=== PATIENT | female | born 1955 | race African-American/Black ===

== ENCOUNTER 2016-08-17 10:50 | Emergency (ER) | payer OTHER ==
[2016-08-17 11:22] VITALS: BP 181/96; PULSE 94; TEMP 99.1; BMI 39.9
--- NOTE | 2016-08-17 11:39 | PDOC ---
History of Present Illness - General History Source: Patient Exam Limitations: No Limitations - History of Present Illness Initial Comments: 08/17/16 11:46 The patient is a 60 year old female, BIBA with a significant past medical history of asthma, diabetes, HTN, hypercholesterolemia, and migraines who presents to the emergency department with left jaw swelling and pain. She reports having an appointment to see her dentist today, but reports her blood pressure was elevated so she decided to come to the ER. Patient also has chief complaints of lower back pain. She reports having a previous recent UTI which was treated with antibiotics about 2 weeks ago. She denies recent fever, chills , and headache. She denies recent nausea, vomit, diarrhea and constipation. Allergies: As per Nursing Notes. Past surgical history:None reported. Social history: Former smoker. PCP: <Armin Andrews - Last Filed: 08/17/16 16:54> <Joss Godoy - Last Filed: 08/17/16 17:35> - General Chief Complaint: Lightheaded Stated Complaint: HTN,DIZZINESS Time Seen by Provider: 08/17/16 11:30 Past History <Armin Andrews - Last Filed: 08/17/16 16:54> - Past Medical History Asthma: Yes Diabetes: Yes HTN: Yes Hypercholesterolemia: Yes - Immunization History Immunization Up to Date: Yes - Psycho/Social/Smoking Cessation Hx Anxiety: No Suicidal Ideation: No Smoking History: Former smoker Have you smoked in the past 12 months: No If you are a former smoker, when did you quit?: 1999 Information on smoking cessation initiated: No Hx Alcohol Use: No Drug/Substance Use Hx: No Substance Use Type: None <Joss Godoy - Last Filed: 08/17/16 17:35> - Past Medical History Allergies/Adverse Reactions: Allergies Allergy/AdvReac Type Severity Reaction Status Date / Time Iodinated Contrast Media - Allergy Verified 08/17/16 11:16 Oral and topiramate [From Topamax] Allergy Verified 08/17/16 11:16 Home Medications: Ambulatory Orders Aspirin [ASA -] 81 mg PO DAILY 07/29/14 Atorvastatin Ca [Lipitor] 20 mg PO HS 07/29/14 Esomeprazole Mag Trihydrate [Nexium] 20 mg PO DAILY 07/29/14 Exenatide [Byetta] 10 mcg SQ BID 07/29/14 Glyburide 10 mg PO BID 07/29/14 Insulin Detemir [Levemir Flextouch] 80 unit SQ BID 07/29/14 Metformin HCl [Metformin HCl ER] 1,000 mg PO BID 07/29/14 Montelukast Na [Singulair -] 10 mg PO HS 07/29/14 Valsartan [Diovan] 320 mg PO DAILY 07/29/14 Albuterol Sulfate Inhaler - [Ventolin HFA Inhaler -] 2 inh PO Q4H PRN 08/11/14 Calcium Carbonate/Vitamin D3 [Calcium + Vitamin D Tablet] 1 each PO DAILY Cyanocobalamin [Vitamin B12 -] 0 mcg PO DAILY 12/28/15 Tramadol HCl 50 mg PO DAILY PRN 12/28/15 Naproxen [Naprosyn -] 500 mg PO BID PRN #14 tablet 12/30/15 Amox-Tr/K Cl [Augmentin - 875Mg Tablet] 1 tab PO BID #14 tablet 08/17/16 Clindamycin [Cleocin -] 600 mg PO Q6H #40 capsule 08/17/16 Methylprednisolone [Medrol Dose Heath] 4 mg PO ASDIR #21 tablet 08/17/16 Review of Systems - Review of Systems Able to Perform ROS?: Yes Comments:: 08/17/16 11:43 GENERAL/CONSTITUTIONAL: No fever or chills. No weakness. HEAD, EYES, EARS, NOSE AND THROAT: Yes: left sided mouth swelling and pain. No change in vision. No ear pain or discharge. No sore throat. CARDIOVASCULAR: No chest pain or shortness of breath. RESPIRATORY: No cough, wheezing, or hemoptysis. GASTROINTESTINAL: No nausea, vomiting, diarrhea or constipation. GENITOURINARY: No dysuria, frequency, or change in urination. MUSCULOSKELETAL: Present: lower back pain. No joint or muscle swelling or pain. No neck or back pain. SKIN: No rash NEUROLOGIC: No headache, loss of consciousness, or change in strength/ sensation. ENDOCRINE: No increased thirst. No abnormal weight change. HEMATOLOGIC/LYMPHATIC: No anemia, easy bleeding, or history of blood clots. ALLERGIC/IMMUNOLOGIC: No hives or skin allergy. <Armin Andrews - Last Filed: 08/17/16 16:54> *Physical Exam - Vital Signs Last Vital Signs Temp Pulse Resp BP Pulse Ox 99.1 F 94 H 20 181/96 97 08/17/16 11:16 08/17/16 11:16 08/17/16 11:16 08/17/16 11:16 08/17/16 11:16 - Physical Exam Comments: 08/17/16 11:47 GENERAL: Awake, alert, and fully oriented, in no acute distress. Morbidity obese. HEAD: No signs of trauma EYES: PERRLA, EOMI, sclera anicteric, conjunctiva clear ENT: Auricles normal inspection, hearing grossly normal, nares patent, oropharynx clear without exudates. Moist mucosa NECK: Huge football shape large intraoral and anterior neck abscess. Real tender to the neck. Cant really open mouth, but abscess appears to be draining into mouth, just posterior to the eye tooth. LUNGS: Breath sounds equal, clear to auscultation bilaterally. No wheezes, and no crackles HEART: Regular rate and rhythm, normal S1 and S2, no murmurs, rubs or gallops ABDOMEN: Large Soft, nontender, normoactive bowel sounds. No guarding, no rebound. No masses EXTREMITIES: Normal range of motion, no edema. No clubbing or cyanosis. No cords, erythema, or tenderness NEUROLOGICAL: Cranial nerves II through XII grossly intact. Normal speech, normal gait SKIN: Warm, Dry, normal turgor, no rashes or lesions noted. <Armin Andrews - Last Filed: 08/17/16 16:54> - Vital Signs Last Vital Signs Temp Pulse Resp BP Pulse Ox 99.1 F 94 H 20 181/96 97 08/17/16 11:16 08/17/16 11:16 08/17/16 11:16 08/17/16 11:16 08/17/16 11:16 <Joss Godoy - Last Filed: 08/17/16 17:35> ED Treatment Course - LABORATORY CBC & Chemistry Diagram: 08/17/16 11:49 08/17/16 12:02 - RADIOLOGY Radiograph Interpretation: 08/17/16 13:30 CHEST X-RAY impressions reported by Manpreet Nelson: No acute pathology. No significant change since 12/30/2015. 08/17/16 16:[address] WITH CONTR impressions reported by : Soft tissue swelling and subcutaneous edema along lateral margin of the left mandibular body, at the region of interest without evidence of an organized/ drainable abscess. No gross focal bone destruction is identified. <Armin Andrews - Last Filed: 08/17/16 16:54> - LABORATORY CBC & Chemistry Diagram: 08/17/16 11:49 08/17/16 12:02 <Joss Godoy - Last Filed: 08/17/16 17:35> Medical Decision Making - Medical Decision Making 08/17/16 16:49 I had a long discussion with the patient, she is refusing to be admitted. 08/17/16 16:54 Patient has hydrocodone and tramadol at home, and will discharge her home on Augmentin. <Armin Andrews - Last Filed: 08/17/16 16:54> *DC/Admit/Observation/Transfer - Attestations Scribe Attestion: 08/17/16 11:47 Documentation prepared by Armin Andrews, acting as medical practice manager for Joss Godoy DO. <Armin Andrews - Last Filed: 08/17/16 16:54> - Discharge Dispostion Admit: No - Attestations Physician Attestion: 08/17/16 11:37 <Joss Godoy - Last Filed: 08/17/16 17:35> Diagnosis at time of Disposition: Diffuse cellulitis of face, Acute cervical adenitis - Discharge Dispostion Disposition: HOME Condition at time of disposition: Improved - Prescriptions Prescriptions: Amox-Tr/K Cl [Augmentin - 875Mg Tablet] 1 tab PO BID #14 tablet Clindamycin [Cleocin -] 600 mg PO Q6H #40 capsule Methylprednisolone [Medrol Dose Heath] 4 mg PO ASDIR #21 tablet - Referrals Referrals: Dipak Nolen MD [Primary Care Provider] - - Patient Instructions Printed Discharge Instructions: DI for Cellulitis -- Adult Additional Instructions: Bozena- I should really be admitting you to the hospital...... Cleocin is four times a day...... get at least two doses into you tonight before bed. Augmentin is three times a day, get at lease one dose into you tonight before bed. Medrol is a steroid. Take Five tomorrow, 4, 3, 2, 1 Each subsequent day.... total of five days. Warm compresses or metal miner the shower and let the water hit the side of your face and neck as much as possible. See your dentist tomorrow or the next day. RETURN TO US RIGHT AWAY if you GET WORSE IN ANY WAY! - Post Discharge Activity Work/School Note: Back to Work
[2016-08-17] MEDS ORDERED: SODIUM CHLORIDE 1,000 ML IV STA (11:49)
[2016-08-17] MEDS ORDERED: FAMOTIDINE 20 MG/50 ML IVPB 50 ML IVPB ONE ×6 (11:49→15:21)
[2016-08-17] MEDS ORDERED: CLINDAMYCIN 900 MG PREMIX IVPB 50 ML IVPB ONE ×2 (11:49→12:07)
[2016-08-17] MEDS ORDERED: methylPREDNISolone NA SUCC 125 MG/2 ML VIAL IVPUSH ONE ×2 (11:49→15:09)
[2016-08-17] MEDS ORDERED: AMPICILLIN NA/SULBACTAM NA 3 GM in SODIUM CHLORIDE 100 ML IVPB ONE (11:49)
[2016-08-17] MEDS ORDERED: HYDROmorphone HCL CARPU-JECT 1 MG/1 ML DISP.SYRIN IVPUSH ONE (12:01)
[2016-08-17] MEDS ORDERED: ONDANSETRON 4 MG/2 ML VIAL IVPB ONE (12:01)
[2016-08-17] MEDS ORDERED: methylPREDNISolone NA SUCC 125 MG/2 ML VIAL ONE ×2 (12:10→15:20)
[2016-08-17 12:21] LABS: BASOPHIL 0.7 % (0-2.0); EOSINOPHIL 0.5 % (0-4.5); MCH 28.5 pg (25.7-33.7); MCHC 32.1 g/dl (32.0-36.0); MEAN PLT VOLUME 9.9 fl (7.5-11.1); NEUTROPHILS 68.3 % (42.8-82.8); PLATELET COUNT 291 K/MM3 (134-434); RDW 14.7 % (11.6-15.6)
[2016-08-17] MEDS ORDERED: HYDROmorphone HCL CARPU-JECT 1 MG/1 ML DISP.SYRIN ONE (12:23)
[2016-08-17 12:36] LABS: INR 1.14 (0.82-1.09); PROTHROMBIN TIME (PATIENT) 12.6 SEC (9.98-11.88)
[2016-08-17 12:39] LABS: ALBUMIN 3.6 g/dl (3.4-5.0); ANION GAP 9 (8-16); CO2 27 mmol/L (21-32); CREATININE 0.7 mg/dL (0.55-1.02); GLUCOSE,RANDOM 175 mg/dL (74-106); SGOT/AST 11 U/L (15-37); SGPT/ALT 28 U/L (12-78)
[2016-08-17 12:43] LABS: ALK PHOS 86 U/L (45-117); BILIRUBIN,TOTAL 0.5 mg/dL (0.2-1.0); TOT PROT 7.2 g/dl (6.4-8.2); TROPONIN I < 0.02 ng/ml (0.00-0.05)
[2016-08-17] MEDS ORDERED: ONDANSETRON 4 MG/2 ML VIAL ONE (13:29)
--- NOTE | 2016-08-17 22:56 | EKG ---
Test Reason : Blood Pressure : / mmHG Vent. Rate : 094 BPM Atrial Rate : 094 BPM P-R Int : 178 ms QRS Dur : 074 ms QT Int : 346 ms P-R-T Axes : 056 -28 030 degrees QTc Int : 432 ms NORMAL SINUS RHYTHM LOW VOLTAGE QRS INFERIOR INFARCT (CITED ON OR BEFORE 21-AUG-2014) CANNOT RULE OUT ANTERIOR INFARCT (CITED ON OR BEFORE 21-AUG-2014) ABNORMAL ECG WHEN COMPARED WITH ECG OF 28-DEC-2015 09:39, NO SIGNIFICANT CHANGE WAS FOUND Confirmed by IVELISSE ANDRES MD ([id number]) on 08/17/2016 10:56:18 PM Referred By: Confirmed By:IVELISSE ANDRES MD
== END 2016-08-17 18:05 | disposition home or self-care (01) ==
LOC: JER 10:50
PROC: 3E03329 Introduction of Other Anti-infective into Peripheral Vein, Percutaneous Approach (ICD-10-PCS; principal; 2016-08-17)
PROC: 3E0337Z Introduction of Electrolytic and Water Balance Substance into Peripheral Vein, Percutaneous Approach (ICD-10-PCS; 2016-08-17)
PROC: 3E033NZ Introduction of Analgesics, Hypnotics, Sedatives into Peripheral Vein, Percutaneous Approach (ICD-10-PCS; 2016-08-17)
PROC: 3E033GC Introduction of Other Therapeutic Substance into Peripheral Vein, Percutaneous Approach (ICD-10-PCS; 2016-08-17)
DX: L03.211 Cellulitis of face (principal); L04.0 Acute lymphadenitis of face, head and neck; J45.901 Unspecified asthma with (acute) exacerbation; E11.9 Type 2 diabetes mellitus without complications; I10 Essential (primary) hypertension; E78.00 Pure hypercholesterolemia, unspecified; Z87.891 Personal history of nicotine dependence; Z79.82 Long term (current) use of aspirin; Z79.84 Long term (current) use of oral hypoglycemic drugs
CPT/HCPCS: 36415; 70491-TC; 71010-TC; 80053; 82550; 84484; 85025; 85610; 87040; 93005; 93010; 99282-25

== ENCOUNTER 2016-08-26 18:38 | Emergency (ER) | payer OTHER ==
[2016-08-26 18:54] VITALS: BMI 38.2
[2016-08-26] MEDS ORDERED: FAMOTIDINE 20 MG/50 ML IVPB 50 ML IVPB ONE ×2 (19:43→19:50)
[2016-08-26] MEDS ORDERED: predniSONE 20 MG TABLET (UD) PO ONE (19:43)
[2016-08-26] MEDS ORDERED: ALBUTEROL SO4 0.083% IH SOL 2.5 MG/3 ML VIAL.NEB. NEB ONE ×2 (19:43→19:50)
[2016-08-26] MEDS ORDERED: predniSONE 20 MG TABLET (UD) ONE (19:50)
--- NOTE | 2016-08-26 20:48 | PDOC ---
[id number]: No Limitations - History of Present Illness Initial Comments: 08/26/16 21:05 The patient is a 60 year old female, with a significant past medical history of asthma, HTN, hyperlipidemia, diabetes, fibromyalgia and migraines, who presents to the emergency department with a rash of her face, chest, back and upper extremities since approximately 11AM this morning. The patient describes the rash as increasingly erythematous and edematous associated with itching and burning. The patient was most recently seen in this ED on 08/17/2016 for facial cellulitis and was discharged home on Augmentin and Cleocin, which she states she completed. The patient states that the facial cellulitis has since resolved but notes that the facial part of the rash she is presenting with today is in the same area as the facial cellulitis was. The patient additionally reports vaginal burning and itching, which she believes is secondary to the antibiotics she took for the facial cellulitis. The patient denies fever, chills, shortness of breath or chest pain. The patient denies using any new soaps or shampoos. The patient does not have a known allergy to Augmentin or Cleocin. Allergies: Topiramate, Iodinated Contrast Media Past Surgical History: None reported. Social History: Former smoker (quit in 1999). Denies alcohol or drug use. PCP: Dr. Nolen <Kiarra Chase - Last Filed: 08/26/16 21:06> - General History Source: Patient Exam Limitations: No Limitations <Cedric May - Last Filed: 09/01/16 13:30> - General Chief Complaint: Allergic Reaction Stated Complaint: ALLERGIC REACTION Time Seen by Provider: 08/26/16 19:09 Past History <Kiarra Chase - Last Filed: 08/26/16 21:06> - Past Medical History Asthma: Yes Diabetes: Yes HTN: Yes Hypercholesterolemia: Yes - Immunization History Immunization Up to Date: Yes - Psycho/Social/Smoking Cessation Hx Anxiety: No Suicidal Ideation: No Smoking History: Former smoker Have you smoked in the past 12 months: No If you are a former smoker, when did you quit?: 1999 Information on smoking cessation initiated: No Hx Alcohol Use: No Drug/Substance Use Hx: No Substance Use Type: None <Cedric May - Last Filed: 09/01/16 13:30> - Past Medical History Allergies/Adverse Reactions: Allergies Allergy/AdvReac Type Severity Reaction Status Date / Time Iodinated Contrast Media - Allergy Verified 08/26/16 18:50 Oral and topiramate [From Topamax] Allergy Verified 08/26/16 18:50 Home Medications: Ambulatory Orders Aspirin [ASA -] 81 mg PO DAILY 07/29/14 Atorvastatin Ca [Lipitor] 20 mg PO HS 07/29/14 Esomeprazole Mag Trihydrate [Nexium] 20 mg PO DAILY 07/29/14 Exenatide [Byetta] 10 mcg SQ BID 07/29/14 Glyburide 10 mg PO BID 07/29/14 Insulin Detemir [Levemir Flextouch] 80 unit SQ BID 07/29/14 Metformin HCl [Metformin HCl ER] 1,000 mg PO BID 07/29/14 Montelukast Na [Singulair -] 10 mg PO HS 07/29/14 Valsartan [Diovan] 320 mg PO DAILY 07/29/14 Albuterol Sulfate Inhaler - [Ventolin HFA Inhaler -] 2 inh PO Q4H PRN 08/11/14 Calcium Carbonate/Vitamin D3 [Calcium 600-Vit D3 200 Tablet] 1 each PO DAILY Cyanocobalamin [Vitamin B12 -] 0 mcg PO DAILY 12/28/15 Tramadol HCl 50 mg PO DAILY PRN 12/28/15 Naproxen [Naprosyn -] 500 mg PO BID PRN #14 tablet 12/30/15 Diphenhydramine HCl [Benadryl -] 25 mg PO Q6H PRN #28 capsule 08/26/16 Epinephrine [Adrenaclick] 0.3 mg IJ ONCE PRN #2 auto.injct 08/26/16 Famotidine [Pepcid] 20 mg PO BID PRN #14 tablet 08/26/16 Fluconazole 150 mg PO ONCE PRN #2 tablet 08/26/16 Prednisone [Deltasone -] 60 mg PO DAILY #12 tablet 08/26/16 Review of Systems - Review of Systems Able to Perform ROS?: Yes Comments:: 08/26/16 20:53 GENERAL/CONSTITUTIONAL: No fever or chills. No weakness. HEAD, EYES, EARS, NOSE AND THROAT: No change in vision. No ear pain or discharge. No sore throat. CARDIOVASCULAR: No chest pain or shortness of breath. RESPIRATORY: No cough, wheezing, or hemoptysis. GASTROINTESTINAL: No nausea, vomiting, diarrhea or constipation. GENITOURINARY: +Vaginal itching/burning. No dysuria, frequency, or change in urination. MUSCULOSKELETAL: No joint or muscle swelling or pain. No neck or back pain. SKIN: +Rash on face, trunk, upper extremities. NEUROLOGIC: No headache, vertigo, loss of consciousness, or change in strength/ sensation. ENDOCRINE: No increased thirst. No abnormal weight change. HEMATOLOGIC/LYMPHATIC: No anemia, easy bleeding, or history of blood clots. ALLERGIC/IMMUNOLOGIC: No hives or skin allergy. <Kiarra Chase - Last Filed: 08/26/16 21:06> *Physical Exam - Vital Signs Last Vital Signs Temp Pulse Resp BP Pulse Ox 97.9 F 102 H 20 146/72 96 08/26/16 18:51 08/26/16 18:51 08/26/16 18:51 08/26/16 18:51 08/26/16 18:51 - Physical Exam Comments: 08/26/16 20:49 GENERAL: Awake, alert, and fully oriented, in no acute distress. HEAD: No signs of trauma. EYES: PERRLA, EOMI, sclera anicteric, conjunctiva clear. ENT: Auricles normal inspection, hearing grossly normal, nares patent, oropharynx clear without exudates. Moist mucosa. NECK: Normal ROM, supple, no lymphadenopathy, JVD, or masses. LUNGS: Diffuse expiratory wheezing. Breath sounds equal. No crackles. HEART: Regular rate and rhythm, normal S1 and S2, no murmurs, rubs or gallops. ABDOMEN: Soft, nontender, normoactive bowel sounds. No guarding, no rebound. No masses. EXTREMITIES: Normal range of motion, no edema. No clubbing or cyanosis. No cords , erythema, or tenderness. NEUROLOGICAL: Cranial nerves II through XII grossly intact. Normal speech, normal gait. SKIN: Diffuse urticaria on face, trunk and upper extremities. Warm, dry, normal turgor. <Kiarra Chase - Last Filed: 08/26/16 21:06> - Vital Signs Last Vital Signs Temp Pulse Resp BP Pulse Ox 97.9 F 102 H 20 146/72 96 08/26/16 18:51 08/26/16 18:51 08/26/16 18:51 08/26/16 18:51 08/26/16 18:51 <Cedric May - Last Filed: 09/01/16 13:30> ED Treatment Course - Medications Given in the ED: ED Medications Discontinued Medications Generic Name Dose Route Start Last Admin Trade Name Ananda PRN Reason Stop Dose Admin Albuterol Sulfate 1 amp 08/26/16 19:43 08/26/16 19:56 Ventolin 0.083% Nebulizer Soln - NEB 08/26/16 19:44 1 amp ONCE ONE Administration Diphenhydramine HCl 50 mg 08/26/16 19:43 08/26/16 19:56 Benadryl Injection - IVPB 08/26/16 19:44 50 mg ONCE ONE Administration Famotidine/Sodium Chloride 50 mls @ 100 mls/hr 08/26/16 19:43 08/26/16 19:56 Pepcid 20 Mg Premixed Ivpb - IVPB 08/26/16 20:12 100 mls/hr ONCE ONE Administration Prednisone 60 mg 08/26/16 19:43 08/26/16 19:56 Deltasone - PO 08/26/16 19:44 60 mg ONCE ONE Administration <Kiarra Chase - Last Filed: 08/26/16 21:06> - Medications Given in the ED: ED Medications Discontinued Medications Generic Name Dose Route Start Last Admin Trade Name Ananda PRN Reason Stop Dose Admin Albuterol Sulfate 1 amp 08/26/16 19:43 08/26/16 19:56 Ventolin 0.083% Nebulizer Soln - NEB 08/26/16 19:44 1 amp ONCE ONE Administration Diphenhydramine HCl 50 mg 08/26/16 19:43 08/26/16 19:56 Benadryl Injection - IVPB 08/26/16 19:44 50 mg ONCE ONE Administration Famotidine/Sodium Chloride 50 mls @ 100 mls/hr 08/26/16 19:43 08/26/16 19:56 Pepcid 20 Mg Premixed Ivpb - IVPB 08/26/16 20:12 100 mls/hr ONCE ONE Administration Prednisone 60 mg 08/26/16 19:43 08/26/16 19:56 Deltasone - PO 08/26/16 19:44 60 mg ONCE ONE Administration <Cedric May - Last Filed: 09/01/16 13:30> Medical Decision Making - Medical Decision Making 08/26/16 20:46 A portion of this note was documented by scribe services under my direction. I have reviewed the details of the note, within reason, and agree with the documentation with the following case summary and management plan written by me. Patient treated in the ED. Nursing notes are reviewed and incorporated into the medical decision-making. Vital signs reviewed. Peripheral IV access obtained by the nurse, laboratory studies are drawn and sent, reviewed and interpreted by myself. Vital Signs Temp Pulse Resp BP Pulse Ox 97.9 F 102 H 20 146/72 96 08/26/16 18:51 08/26/16 18:51 08/26/16 18:51 08/26/16 18:51 08/26/16 18:51 60-year-old female with history of fibromyalgia, migraine, obesity, asthma presents with ALLERGIC reaction. Patient had completed a course of amoxicillin and clindamycin yesterday. Today, developed diffuse urticaria and some intermittent wheezing. Denies shortness of breath. Denies nausea, vomiting, chest pain. Patient is unsure if she ALLERGIC to the Amoxicillin for clindamycin. Denies new soaps, lotions, perfrume, clothes. Patient has no airway comprise at this time. We'll give albuterol, steroids, Pepcid, Benadryl and observed. Symptoms improved, we'll discharge with medications. I struck the patient to stop taking amoxicillin and clindamycin. We 'll give referral to an clinical academic allergist. the patient is also complaining of vaginal discharge consistent with prior vaginal yeast infection. She reports that this occurs everytime after she takes antibiotics. Will give fluconazole. 08/26/16 22:15 The patient felt warm and flushed after the IV benadryl. 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 ECG obtained. NSR 100, left axis deviation, no std/ermias, QTC 456 msec. I have no suspicion for ACS. After tylenol and zofran, patient reports feeling significantly better. Will give her a referral to an clinical academic allergist. Return precautions given. I discussed the physical exam findings, ancillary test results and final diagnoses with the patient. I answered all of the patient's questions. The patient was satisfied with the care received and felt comfortable with the discharge plan and treatment plan. The patient will call their primary care physician within 24 hours to arrange follow-up and will return to the Emergency Department with any new, persistant or worsening symptoms. 09/01/16 13:30 <Cedric May - Last Filed: 09/01/16 13:30> *DC/Admit/Observation/Transfer - Attestations Scribe Attestion: 08/26/16 20:49 Documentation prepared by Kiarra Chase, acting as medical billing specialist for Cedric May MD. <Kiarra Chase - Last Filed: 08/26/16 21:06> - Discharge Dispostion Admit: No <Cedric May - Last Filed: 09/01/16 13:30> Diagnosis at time of Disposition: Allergic reaction Qualifiers: Encounter type: initial encounter Qualified Code(s): T78.40XA - Allergy, unspecified, initial encounter - Discharge Dispostion Disposition: HOME Condition at time of disposition: Improved - Prescriptions Prescriptions: Epinephrine [Adrenaclick] 0.3 mg IJ ONCE PRN #2 auto.injct PRN Reason: Anaphylaxis Diphenhydramine HCl [Benadryl -] 25 mg PO Q6H PRN #28 capsule PRN Reason: Itching Prednisone [Deltasone -] 60 mg PO DAILY #12 tablet Fluconazole 150 mg PO ONCE PRN #2 tablet PRN Reason: Vaginal yeast infection Famotidine [Pepcid] 20 mg PO BID PRN #14 tablet PRN Reason: Allergic Reaction - Referrals Referrals: Dipak Nolen MD [Primary Care Provider] - Manpreet Nicholas MD [Staff Physician] - - Patient Instructions Printed Discharge Instructions: DI for Adverse Drug Reaction -- Allergic Additional Instructions: Please let your doctor know about the amoxicillin and clindamycin. You may be allergic to these medications. Drink plenty of fluids and rest. Continue to take the prednisone daily for the next 4 days. Take 25 mg benadryl every 6 hours and/or 20 mg pepcid every 12 hours as needed for further symptom reduction. If you develop difficulty breathing or facial swelling from an allergic reaction , please use the adrenaclick (epi-pen) and return to the ER. Call and schedule an appointment with an clinical academic allergist.
[2016-08-26] MEDS ORDERED: FLUCONAZOLE 50 MG TABLET PO ONE (20:50)
[2016-08-26] MEDS ORDERED: ACETAMINOPHEN 325 MG TABLET (FP) PO ONE (21:01)
[2016-08-26] MEDS ORDERED: ONDANSETRON 4 MG/2 ML VIAL IVPB ONE (21:01)
[2016-08-26] MEDS ORDERED: ACETAMINOPHEN 325 MG TABLET (FP) ONE (21:09)
[2016-08-26] MEDS ORDERED: ONDANSETRON 4 MG/2 ML VIAL ONE (21:09)
[2016-08-26 21:19] VITALS: BP 142/74; PULSE 92; TEMP 98.6
--- NOTE | 2016-08-27 13:34 | EKG ---
Test Reason : Blood Pressure : / mmHG Vent. Rate : 100 BPM Atrial Rate : 100 BPM P-R Int : 152 ms QRS Dur : 092 ms QT Int : 354 ms P-R-T Axes : 048 -36 047 degrees QTc Int : 456 ms NORMAL SINUS RHYTHM LEFT AXIS DEVIATION ANTERIOR INFARCT (CITED ON OR BEFORE 21-AUG-2014) ABNORMAL ECG WHEN COMPARED WITH ECG OF 17-AUG-2016 13:43, NO SIGNIFICANT CHANGE WAS FOUND Confirmed by VELIA LEONG, CLAUDIA ([id number]) on 08/27/2016 1:34:33 PM Referred By: Confirmed By:CLAUDIA GUNN MD
== END 2016-08-26 22:27 | disposition home or self-care (01) ==
LOC: JER 18:38
PROC: 3E0F7GC Introduction of Other Therapeutic Substance into Respiratory Tract, Via Natural or Artificial Opening (ICD-10-PCS; principal; 2016-08-26)
PROC: 3E033GC Introduction of Other Therapeutic Substance into Peripheral Vein, Percutaneous Approach (ICD-10-PCS; 2016-08-26)
DX: T78.40XA Allergy, unspecified, initial encounter (principal); I10 Essential (primary) hypertension; E11.9 Type 2 diabetes mellitus without complications; E78.5 Hyperlipidemia, unspecified; M79.7 Fibromyalgia; Z87.891 Personal history of nicotine dependence
CPT/HCPCS: 93005; 93010; 99285-25

== ENCOUNTER 2017-06-22 13:30 | Inpatient (IN) | payer OTHER ==
[2017-06-22] MEDS ORDERED: morphine CARPU-JECT 4 MG/1 ML DISP.SYRIN IVPUSH ONE ×2 (14:58→20:16)
--- NOTE | 2017-06-22 14:58 | PDOC ---
History of Present Illness - General History Source: Patient Exam Limitations: No Limitations - History of Present Illness Initial Comments: 06/22/17 14:58 The patient is a 61 year old female, with a significant past medical history of asthma, HTN, hyperlipidemia, diabetes, fibromyalgia, and migraines who presents to the emergency department with right sided flank pain. Patient arrives with right sided flank pain that radiates to the back, shoulder and chest (somewhat pleuritic) for about a week. She ranks her pain a 10/10 in pain intensity. She relates having a history of gallstone She reports also reports having 3 episodes of vomiting (nonbloody)with intermittent episodes of nausea. She notes having complaints of mild dysuria. She denies recent fevers, chills, headache or dizziness. She denies recent diarrhea or constipation. She denies recent frequency, urgency or hematuria. She denies recent shortness of breath. Allergies: Amoxicillin, IV contrast. Past surgical history: Bilateral hernia repair (over 40 years ago) Social history: Nonsmoker. Denies EtOH use and recreational drug use. <Armin Andrews - Last Filed: 06/22/17 14:58> - General History Source: Patient Exam Limitations: No Limitations <Ramya Zamora - Last Filed: 06/24/17 09:48> - General Chief Complaint: Pain Stated Complaint: CHEST PAIN, LT SIDE PAIN Past History <Armin Andrews - Last Filed: 06/22/17 14:58> - Past Medical History Asthma: Yes COPD: No Diabetes: Yes HTN: Yes Hypercholesterolemia: Yes - Surgical History Abdominal Surgery: Yes (hernia) - Immunization History Immunization Up to Date: Yes - Suicide/Smoking/Psychosocial Hx Smoking History: Never smoked Have you smoked in the past 12 months: No If you are a former smoker, when did you quit?: 1999 Information on smoking cessation initiated: No Hx Alcohol Use: No Drug/Substance Use Hx: No Substance Use Type: None <Ramya Zamora - Last Filed: 06/24/17 09:48> - Past Medical History Allergies/Adverse Reactions: Allergies Allergy/AdvReac Type Severity Reaction Status Date / Time clindamycin Allergy Severe Rash Verified 06/22/17 13:45 amoxicillin Allergy Intermediate Rash Verified 06/22/17 13:45 Iodinated Contrast- Oral and Allergy Verified 06/22/17 13:45 IV Dye topiramate [From Topamax] Allergy Verified 06/22/17 13:45 Home Medications: Ambulatory Orders Aspirin [ASA -] 81 mg PO DAILY 07/29/14 Atorvastatin Ca [Lipitor] 20 mg PO HS 07/29/14 Esomeprazole Mag Trihydrate [Nexium] 20 mg PO DAILY 07/29/14 Exenatide [Byetta] 10 mcg SQ BID 07/29/14 Insulin Detemir [Levemir Flextouch] 80 unit SQ BID 07/29/14 Metformin HCl [Metformin HCl ER] 1,000 mg PO BID 07/29/14 Montelukast Na [Singulair -] 10 mg PO HS 07/29/14 Valsartan [Diovan] 320 mg PO DAILY 07/29/14 Albuterol Sulfate Inhaler - [Ventolin HFA Inhaler -] 2 inh PO Q4H PRN 08/11/14 Calcium Carbonate/Vitamin D3 [Calcium 600-Vit D3 200 Tablet] 1 each PO DAILY Cyanocobalamin [Vitamin B12 -] 0 mcg PO DAILY 12/28/15 Tramadol HCl 50 mg PO DAILY PRN 12/28/15 Naproxen [Naprosyn -] 500 mg PO BID PRN #14 tablet 12/30/15 Levofloxacin [Levaquin] 500 mg PO DAILY #6 tablet 06/23/17 Metronidazole [Flagyl -] 500 mg PO Q8H #20 tablet 06/23/17 Review of Systems - Review of Systems Able to Perform ROS?: Yes Comments:: 06/22/17 14:58 GENERAL/CONSTITUTIONAL: No fever or chills. No weakness. HEAD, EYES, EARS, NOSE AND THROAT: No change in vision. No ear pain or discharge. No sore throat. CARDIOVASCULAR: +chest pain No shortness of breath. RESPIRATORY: No cough, wheezing, or hemoptysis. GASTROINTESTINAL: +flank pain,nausea, vomiting. No, diarrhea or constipation. GENITOURINARY: +dysuria No frequency, or change in urination. MUSCULOSKELETAL: +back, shoulder pain. No joint or muscle swelling or pain. SKIN: No rash NEUROLOGIC: No headache, vertigo, loss of consciousness, or change in strength/ sensation. ENDOCRINE: No increased thirst. No abnormal weight change. HEMATOLOGIC/LYMPHATIC: No anemia, easy bleeding, or history of blood clots. ALLERGIC/IMMUNOLOGIC: No hives or skin allergy. <Armin Andrews - Last Filed: 06/22/17 14:58> *Physical Exam - Vital Signs Last Vital Signs Temp Pulse Resp BP Pulse Ox 97.6 F 85 18 164/76 100 06/22/17 13:46 06/22/17 13:46 06/22/17 13:46 06/22/17 13:46 06/22/17 13:46 - Physical Exam Comments: 06/22/17 14:58 GENERAL: Awake, alert, and fully oriented, in no acute distress HEAD: No signs of trauma EYES: PERRLA, EOMI, sclera anicteric, conjunctiva clear ENT: Auricles normal inspection, hearing grossly normal, nares patent, Moist mucosa NECK: Normal ROM, supple, JVD, or masses LUNGS: Breath sounds equal, clear to auscultation bilaterally. No wheezes, and no crackles HEART: Regular rate and rhythm, normal S1 and S2, no murmurs, rubs or gallops ABDOMEN: Obese. RUQ, Right Mid Quadrant and LLQ tenderness. No CVA tenderness. , normoactive bowel sounds. No guarding, no rebound. No masses EXTREMITIES: Normal range of motion, no edema. No clubbing or cyanosis. No cords, erythema, or tenderness. 2+DP/PT pulses. No calf tenderness or edema. NEUROLOGICAL: Normal speech, normal gait, moves all extremities equally. Speech clear. SKIN: Warm, Dry, normal turgor, no rashes or lesions noted. <Armin Andrews - Last Filed: 06/22/17 14:58> - Vital Signs Last Vital Signs Temp Pulse Resp BP Pulse Ox 97.6 F 85 18 164/76 100 06/22/17 13:46 06/22/17 13:46 06/22/17 13:46 06/22/17 13:46 06/22/17 13:46 <Ramya Zamora - Last Filed: 06/24/17 09:48> Heart Score/ECG Review #1 General ECG Interpretation: Sinus Rhythm, Normal Rate (84), Normal Intervals, No acute ischemic changes <Ramya Zamora - Last Filed: 06/24/17 09:48> ED Treatment Course - LABORATORY CBC & Chemistry Diagram: 06/23/17 07:00 06/23/17 07:00 <Ramya Zamora - Last Filed: 06/24/17 09:48> Medical Decision Making - Medical Decision Making 06/22/17 14:54 61-year-old female history of diabetes, hypertension, asthma, prior gallstones and previous abdominal hernia repairs here today complaining of right-sided abdominal pain that started 1 week ago did have associated nausea vomiting 3 no fevers also complaining of mild dysuria pain is somewhat pleuritic radiating to her back and between her shoulder blades worse than prior gallbladder attack also described a chest pain no shortness breath no cough Exam patient is awake alert distress cardiac and lung exam is unremarkable abdominal exam is noted for right upper quadrant tenderness right lower quadrant tenderness as well as left lower quadrant tenderness no CVA tenderness she is obese extremities are warm well perfused Differential diagnosis includes biliary colic, cholecystitis pyelonephritis or UTI appendicitis or diverticulitis plan ultrasound the gallbladder and possible CT abdomen and pelvis labs EKG chest x-ray pain control and antiemetics <Ramya Zamora - Last Filed: 06/24/17 09:48> *DC/Admit/Observation/Transfer - Attestations Scribe Attestion: 06/22/17 14:58 Documentation prepared by Armin Andrews, acting as medical office assistant instructor for Ramya Zamora MD. <Armin Andrews - Last Filed: 06/22/17 14:58> <Ramya Zamora - Last Filed: 06/24/17 09:48> Diagnosis at time of Disposition: Symptomatic cholelithiasis - Discharge Dispostion Disposition: HOME Condition at time of disposition: Stable
[2017-06-22] MEDS ORDERED: ONDANSETRON 4 MG/2 ML VIAL IVPUSH ONE ×2 (14:59→20:32)
[2017-06-22] MEDS ORDERED: SODIUM CHLORIDE 0.9% 1000 ML INFUS.BAG IV ONE ×2 (14:59→20:32)
[2017-06-22] MEDS ORDERED: morphine SULFATE 4 MG/ML VIAL ONE ×3 (15:37→20:17)
[2017-06-22] MEDS ORDERED: ONDANSETRON 4 MG/2 ML VIAL ONE ×2 (15:37→20:39)
[2017-06-22 16:00] LABS: BASO % 1.2 % (0-2.0); EOS % 2.1 % (0-4.5); MCH 28.7 pg (25.7-33.7); MCHC 32.3 g/dl (32.0-36.0); MEAN CELL VOLUME 89.1 fl (80-96); MEAN PLT VOLUME 9.5 fl (7.5-11.1); NEUT % 50.2 % (42.8-82.8); PLATELET COUNT 320 K/MM3 (134-434); RDW 14.5 % (11.6-15.6); WHITE BLOOD COUNT 8.3 K/mm3 (4.0-10.0)
[2017-06-22 16:02] LABS: URINE APPEARANCE CLEAR; URINE BILIRUBIN NEGATIVE (NEGATIVE); URINE BLOOD NEGATIVE (NEGATIVE); URINE COLOR LTYELLOW; URINE GLUCOSE (UA) 3+ (NEGATIVE); URINE KETONE TRACE (NEGATIVE); URINE LEUK ESTERASE NEGATIVE (NEGATIVE); URINE NITRITE NEGATIVE (NEGATIVE); URINE PROTEIN NEGATIVE (NEGATIVE); URINE UROBILINOGEN NEGATIVE mg/dL (0.2-1.0)
[2017-06-22 16:28] LABS: ALBUMIN 3.3 g/dl (3.4-5.0); ANION GAP 8 (8-16); BILIRUBIN,TOTAL 0.3 mg/dL (0.2-1.0); CO2 27 mmol/L (21-32); CREATININE 0.7 mg/dL (0.55-1.02); GLUCOSE,RANDOM 196 mg/dL (74-106); SGOT/AST 15 U/L (15-37); SGPT/ALT 28 U/L (12-78); TOT PROT 6.7 g/dl (6.4-8.2)
[2017-06-22 16:29] LABS: ALK PHOS 88 U/L (45-117)
[2017-06-22 17:43] LABS: CPK 71 IU/L (26-192); TROPONIN I < 0.02 ng/ml (0.00-0.05)
[2017-06-22 20:12] LABS: URINE LEUK ESTERASE Negative (NEGATIVE)
[2017-06-22] MEDS ORDERED: FAMOTIDINE 20 MG/50 ML IVPB 50 ML IVPB ONE (20:32)
--- NOTE | 2017-06-22 20:34 | PDOC ---
*Physical Exam - Vital Signs Last Vital Signs Temp Pulse Resp BP Pulse Ox 97.6 F 85 18 164/76 100 06/22/17 13:46 06/22/17 13:46 06/22/17 13:46 06/22/17 13:46 06/22/17 13:46 - Physical Exam Comments: 06/22/17 20:33 gen: aaox3, nad heart: +s1s2 reg Lungs: cta b/l Abd: soft, ttp RUQ, epigastric, no rebound or guarding, mildly distended, obese ext: no c/c/e ED Treatment Course - LABORATORY CBC & Chemistry Diagram: 06/22/17 15:36 06/22/17 15:36 - ADDITIONAL ORDERS Additional order review: Laboratory Results 06/22/17 06/22/17 06/22/17 16:30 15:36 15:36 Sodium 138 Potassium 4.3 Chloride 103 Carbon Dioxide 27 Anion Gap 8 BUN 12 D Creatinine 0.7 Creat Clearance w eGFR > 60 Random Glucose 196 H Calcium 9.0 Total Bilirubin 0.3 D AST 15 D ALT 28 Alkaline Phosphatase 88 Creatine Kinase 71 Troponin I < 0.02 Total Protein 6.7 Albumin 3.3 L Lipase 153 Urine Color Ltyellow Urine Appearance Clear Urine pH 5.0 Ur Specific [place] 1.024 Urine Protein Negative Urine Glucose (UA) 3+ H Urine Ketones Trace H Urine Blood Negative Urine Nitrite Negative Urine Bilirubin Negative Urine Urobilinogen Negative Ur Leukocyte Esterase Negative 06/22/17 15:36 RBC 4.82 MCV 89.1 MCHC 32.3 RDW 14.5 MPV 9.5 Neutrophils % 50.2 D Lymphocytes % 38.8 D Monocytes % 7.7 Eosinophils % 2.1 D Basophils % 1.2 - Medications Given in the ED: ED Medications Discontinued Medications Generic Name Dose Route Start Last Admin Trade Name Freq PRN Reason Stop Dose Admin Morphine Sulfate 4 mg 06/22/17 14:58 06/22/17 15:59 Morphine Injection - IVPUSH 06/22/17 14:59 Not Given ONCE ONE Morphine Sulfate 4 mg 06/22/17 20:16 06/22/17 20:23 Morphine Injection - IVPUSH 06/22/17 20:17 4 mg ONCE ONE Administration Ondansetron HCl 4 mg 06/22/17 14:59 06/22/17 15:59 Zofran Injection IVPUSH 06/22/17 15:00 Not Given ONCE ONE Sodium Chloride 1,000 ml 06/22/17 14:59 06/22/17 15:30 Normal Saline - IV 06/22/17 15:00 1,000 ml ONCE ONE Administration Medical Decision Making - Medical Decision Making 06/22/17 20:34 a/p: pt signed out pending labs, us, ct -pt with gallstones normal labs still with pain still with ttp RUQ will discuss with surgery re: symptomatic kerri pt states symptoms becoming more freq 06/22/17 20:[address] hartmann who will see the patient in consult tomorrow NPO, ivf hydration, repeat labs in AM microblog sent to [facility] for obs placement 06/22/17 21:[address] Reyna who accept pt to service. *DC/Admit/Observation/Transfer Diagnosis at time of Disposition: Symptomatic cholelithiasis - Discharge Dispostion Condition at time of disposition: Stable Admit: Yes - Referrals Referrals: STAFF,NOT ON [Primary Care Provider] - - Patient Instructions - Post Discharge Activity
[2017-06-22] MEDS ORDERED: FAMOTIDINE/PF 20 MG/12 ML PUSH IVPUSH ONE (20:45)
[2017-06-22] MEDS ORDERED: FAMOTIDINE 20 MG/50 ML IVPB 20 MG/50 ML MG IVPB ONE (20:56)
[2017-06-22] MEDS ORDERED: morphine SULFATE 4 MG/ML VIAL IVPUSH PRN (21:32)
[2017-06-22] MEDS ORDERED: ONDANSETRON 4 MG/2 ML VIAL IVPUSH PRN (21:32)
[2017-06-22] MEDS ORDERED: ALBUTEROL SO4 18 GM HFA INHALER IH PRN (21:38)
--- NOTE | 2017-06-22 21:44 | MSN ---
Admitting History and Physical - Admission Chief Complaint: Right flank pain History of Present Illness: Deana Rodriguez is a 61 year old female with past medical history of DM, HTN, Asthma, who presents with 1 week of right flank pain. Patient states that the pain is a stabbing pain that radiates between the shoulders. Patient states that she has been taking hydrocodone with temporary relief, then the pain returns. She states that the pain has been worsening and is now severe. She states the pain is worse with bending over and laying on the right side. Patient also reports nausea and 3 episodes of vomiting a few days ago, abdominal fullness, distension, bloating, loose mucoid stool. Patient states that she had a large bowel movement today morning. Patient also reports dysuria , SOB due to pain, and burning chest pain, for which she takes Nexium. Patient denies fever, chills, leg swelling. Patient states she has history of gall bladder stones for a few years. ED course was notable for: 1. T: 97.6, BP: 164/76, IL: 85 2. Gallbladder US showed cholelithiasis 3. Abdominal CT was negative for acute pathology 4. AST 15, ALT 28, ALP 88 History Source: Patient Limitations to Obtaining History: No Limitations - Past Medical History Cardiovascular: Yes: HTN Pulmonary: Yes: Asthma Endocrine: Yes: Diabetes Mellitus - Smoking History Smoking history: Never smoked Have you smoked in the past 12 months: No If you are a former smoker, when did you quit?: 1999 - Alcohol/Substance Use Hx Alcohol Use: No Home Medications - Allergies Allergies/Adverse Reactions: Allergies Allergy/AdvReac Type Severity Reaction Status Date / Time clindamycin Allergy Severe Rash Verified 06/22/17 13:45 amoxicillin Allergy Intermediate Rash Verified 06/22/17 13:45 Iodinated Contrast- Oral and Allergy Verified 06/22/17 13:45 IV Dye topiramate [From Topamax] Allergy Verified 06/22/17 13:45 - Home Medications Home Medications: Ambulatory Orders Aspirin [ASA -] 81 mg PO DAILY 07/29/14 Atorvastatin Ca [Lipitor] 20 mg PO HS 07/29/14 Esomeprazole Mag Trihydrate [Nexium] 20 mg PO DAILY 07/29/14 Exenatide [Byetta] 10 mcg SQ BID 07/29/14 Glyburide 10 mg PO BID 07/29/14 Insulin Detemir [Levemir Flextouch] 80 unit SQ BID 07/29/14 Metformin HCl [Metformin HCl ER] 1,000 mg PO BID 07/29/14 Montelukast Na [Singulair -] 10 mg PO HS 07/29/14 Valsartan [Diovan] 320 mg PO DAILY 07/29/14 Albuterol Sulfate Inhaler - [Ventolin HFA Inhaler -] 2 inh PO Q4H PRN 08/11/14 Calcium Carbonate/Vitamin D3 [Calcium 600-Vit D3 200 Tablet] 1 each PO DAILY Cyanocobalamin [Vitamin B12 -] 0 mcg PO DAILY 12/28/15 Tramadol HCl 50 mg PO DAILY PRN 12/28/15 Naproxen [Naprosyn -] 500 mg PO BID PRN #14 tablet 12/30/15 Diphenhydramine HCl [Benadryl -] 25 mg PO Q6H PRN #28 capsule 08/26/16 Epinephrine [Adrenaclick] 0.3 mg IJ ONCE PRN #2 auto.injct 08/26/16 Famotidine [Pepcid] 20 mg PO BID PRN #14 tablet 08/26/16 Fluconazole 150 mg PO ONCE PRN #2 tablet 08/26/16 Prednisone [Deltasone -] 60 mg PO DAILY #12 tablet 08/26/16 Review of Systems - Review of Systems Constitutional: reports: No Symptoms Eyes: reports: No Symptoms HENT: reports: No Symptoms Neck: reports: No Symptoms Cardiovascular: reports: No Symptoms Respiratory: reports: SOB Gastrointestinal: reports: Abdominal Pain, Bloating, Nausea, Vomiting Genitourinary: reports: Dysuria, Flank Pain Musculoskeletal: reports: No Symptoms Integumentary: reports: No Symptoms Neurological: reports: No Symptoms Physical Examination Vital Signs: Vital Signs Temperature 97.6 F 06/22/17 13:46 Pulse Rate 85 06/22/17 13:46 Respiratory Rate 18 06/22/17 13:46 Blood Pressure 164/76 06/22/17 13:46 O2 Sat by Pulse Oximetry (%) 100 06/22/17 13:46 Constitutional: Yes: Calm, Obese Eyes: Yes: Conjunctiva Clear, EOM Intact HENT: Yes: Atraumatic, Normocephalic Neck: Yes: Supple, Trachea Midline Cardiovascular: Yes: Regular Rate and Rhythm Respiratory: Yes: Regular, CTA Bilaterally Gastrointestinal: Yes: Normal Bowel Sounds, Soft, Abdomen, Obese, Distention ( mildly distended), Tenderness (tenderness to palpation in right upper and right lower quadrant), Tenderness, Epigastrium, Other (Positive Ellison's sign) Renal/: Yes: CVA Tenderness - Right Extremities: Yes: WNL Edema: No Peripheral Pulses WNL: Yes Neurological: Yes: Alert, Oriented Labs: CBC, BMP 06/22/17 15:36 06/22/17 15:36 Assessment/Plan Deana Rodriguez is a 61 yo F w/ PMHx of DM, HTN, Asthma, who presents with right flank pain. Patient was admitted to observation for symptomatic cholelithiasis. 1. Symptomatic cholelithiasis - Gallbladder US- - CT of abdomen and pelvis was normal - NPO - 1/2 NS - Pain control with Morphine 1mg Q4H PRN - Protonix 40 mg IVPUSH daily - Surgery on board- Dr. Ng 2. DM - Hold meds - BGM - ISS 3. HTN - Continue Diovan 4. HLD - Continue Lipitor 5. Asthma - Continue Albuterol and singulair DVT Proph - SCDs bilaterally Dispo: Will admit to observation.
--- NOTE | 2017-06-22 21:59 | HP ---
<Marcelino Saenz - Last Filed: 06/22/17 22:01> CHIEF COMPLAINT: Right flank pain PCP: Not on staff HISTORY OF PRESENT ILLNESS: 61 y.o. F with pmh of asthma, HTN, HLD, DM, fibromyalgia presenting with right flank pain. Patient states she has right flank pain x 1 week that radiates to her shoulder, neck, and back. Patient states she was controlling her symptoms with hydrocodone for the past week but decided to come in due to continuos pain. The pain is stabbing and 10/10. She states the pain is worse with bending over and laying on the right side. Patient has a hx of gallstones that had been evaluated within the past yr and was evaluated by a surgeon at a [facility]. Patient endorses nausea, vomiting, dysuria, and abdominal distention. She denies fever, chills, headache, dizziness, diarrhea, constipation, frequency, urgency, or hematuria. ER course was notable for: (1) CBC, CMP unremarkable, trop negative (2) U/S- multiple gallbladder calculi without distention (3) CTAP- negative Recent Travel: denies PAST MEDICAL HISTORY: as per HPI PAST SURGICAL HISTORY: b/l inguinal hernia, ORIF Social History: Smoking: former smoker Alcohol: denies Drugs: denies Family History: Allergies clindamycin Allergy (Severe, Verified 06/22/17 13:45) Rash amoxicillin Allergy (Intermediate, Verified 06/22/17 13:45) Rash Iodinated Contrast- Oral and IV Dye Allergy (Verified 06/22/17 13:45) topiramate [From Topamax] Allergy (Verified 06/22/17 13:45) HOME MEDICATIONS: Home Medications Medication Instructions Recorded Aspirin [ASA -] 81 mg PO DAILY 07/29/14 Atorvastatin Ca [Lipitor] 20 mg PO HS 07/29/14 Esomeprazole Mag Trihydrate 20 mg PO DAILY 07/29/14 [Nexium] Exenatide [Byetta] 10 mcg SQ BID 07/29/14 Glyburide 10 mg PO BID 07/29/14 Insulin Detemir [Levemir Flextouch] 80 unit SQ BID 07/29/14 Metformin HCl [Metformin HCl ER] 1,000 mg PO BID 07/29/14 Montelukast Na [Singulair -] 10 mg PO HS 07/29/14 Valsartan [Diovan] 320 mg PO DAILY 07/29/14 Albuterol Sulfate Inhaler - 2 inh PO Q4H PRN 08/11/14 [Ventolin HFA Inhaler -] Calcium Carbonate/Vitamin D3 1 each PO DAILY 12/28/15 [Calcium 600-Vit D3 200 Tablet] Cyanocobalamin [Vitamin B12 -] 0 mcg PO DAILY 12/28/15 Tramadol HCl 50 mg PO DAILY PRN 12/28/15 Naproxen [Naprosyn -] 500 mg PO BID PRN #14 tablet 12/30/15 Diphenhydramine HCl [Benadryl -] 25 mg PO Q6H PRN #28 capsule 08/26/16 Epinephrine [Adrenaclick] 0.3 mg IJ ONCE PRN #2 auto.injct 08/26/16 Famotidine [Pepcid] 20 mg PO BID PRN #14 tablet 08/26/16 Fluconazole 150 mg PO ONCE PRN #2 tablet 08/26/16 Prednisone [Deltasone -] 60 mg PO DAILY #12 tablet 08/26/16 REVIEW OF SYSTEMS CONSTITUTIONAL: Absent: fever, chills, diaphoresis, generalized weakness, malaise, loss of appetite, weight change HEENT: Absent: rhinorrhea, nasal congestion, throat pain, throat swelling, difficulty swallowing, mouth swelling, ear pain, eye pain, visual changes CARDIOVASCULAR: Absent: chest pain, syncope, palpitations, irregular heart rate, lightheadedness , peripheral edema RESPIRATORY: Absent: cough, shortness of breath, dyspnea with exertion, orthopnea, wheezing, stridor, hemoptysis GASTROINTESTINAL: Absent: abdominal pain, abdominal distension, nausea, vomiting, diarrhea, constipation, melena, hematochezia GENITOURINARY: Absent: dysuria, frequency, urgency, hesitancy, hematuria, flank pain, genital pain MUSCULOSKELETAL: Absent: myalgia, arthralgia, joint swelling, back pain, neck pain SKIN: Absent: rash, itching, pallor HEMATOLOGIC/IMMUNOLOGIC: Absent: easy bleeding, easy bruising, lymphadenopathy, frequent infections ENDOCRINE: Absent: unexplained weight gain, unexplained weight loss, heat intolerance, cold intolerance NEUROLOGIC: Absent: headache, focal weakness or paresthesias, dizziness, unsteady gait, seizure, mental status changes, bladder or bowel incontinence PSYCHIATRIC: Absent: anxiety, depression, suicidal or homicidal ideation, hallucinations. PHYSICAL EXAMINATION Vital Signs - 24 hr 06/22/17 06/22/17 13:46 21:30 Temperature 97.6 F 98.7 F Pulse Rate 85 Pulse Rate [ 84 Right Radial] Respiratory 18 18 Rate Blood Pressure 164/76 Blood Pressure 162/84 [Right Arm] O2 Sat by Pulse 100 95 Oximetry (%) GENERAL: Awake, alert, and fully oriented, in no acute distress. HEAD: Normal with no signs of trauma. EYES: Extraocular movements intact, sclera anicteric, conjunctiva clear. No lid lag. EARS, NOSE, THROAT: Oropharynx clear without exudates. Dry mucous membranes. NECK: Normal range of motion, supple without lymphadenopathy, JVD, or masses. LUNGS: Breath sounds equal, clear to auscultation bilaterally. No wheezes, and no crackles. No accessory muscle use. HEART: Regular rate and rhythm, normal S1 and S2 without murmur, rub or gallop. ABDOMEN: Soft, +RUQ, RLQ tenderness, +distention, +guarding, no rebound, no masses. No hepatomegaly or splenomegaly. +Ellison's sign MUSCULOSKELETAL: Normal range of motion at all joints. No bony deformities or tenderness. +Right CVA tenderness UPPER EXTREMITIES: 2+ pulses, warm, well-perfused. No cyanosis. No clubbing. No peripheral edema. LOWER EXTREMITIES: 2+ pulses, warm, well-perfused. No calf tenderness. No peripheral edema. NEUROLOGICAL: Cranial nerves II-XII intact. Normal speech. Normal gait. PSYCHIATRIC: Cooperative. Good eye contact. Appropriate mood and affect. SKIN: Warm, dry, normal turgor, no rashes or lesions noted, normal capillary refill. Laboratory Results - last 24 hr 06/22/17 06/22/17 06/22/17 15:36 15:36 15:36 WBC 8.3 D RBC 4.82 Hgb 13.9 Hct 42.9 MCV 89.1 MCH 28.7 MCHC 32.3 RDW 14.5 Plt Count 320 MPV 9.5 Neutrophils % 50.2 D Lymphocytes % 38.8 D Monocytes % 7.7 Eosinophils % 2.1 D Basophils % 1.2 Sodium 138 Potassium 4.3 Chloride 103 Carbon Dioxide 27 Anion Gap 8 BUN 12 D Creatinine 0.7 Creat Clearance w eGFR > 60 Random Glucose 196 H Calcium 9.0 Total Bilirubin 0.3 D AST 15 D ALT 28 Alkaline Phosphatase 88 Creatine Kinase Troponin I Total Protein 6.7 Albumin 3.3 L Lipase 153 Urine Color Ltyellow Urine Appearance Clear Urine pH 5.0 Ur Specific [place] 1.024 Urine Protein Negative Urine Glucose (UA) 3+ H Urine Ketones Trace H Urine Blood Negative Urine Nitrite Negative Urine Bilirubin Negative Urine Urobilinogen Negative Ur Leukocyte Esterase Negative 06/22/17 16:30 WBC RBC Hgb Hct MCV MCH MCHC RDW Plt Count MPV Neutrophils % Lymphocytes % Monocytes % Eosinophils % Basophils % Sodium Potassium Chloride Carbon Dioxide Anion Gap BUN Creatinine Creat Clearance w eGFR Random Glucose Calcium Total Bilirubin AST ALT Alkaline Phosphatase Creatine Kinase 71 Troponin I < 0.02 Total Protein Albumin Lipase Urine Color Urine Appearance Urine pH Ur Specific [place] Urine Protein Urine Glucose (UA) Urine Ketones Urine Blood Urine Nitrite Urine Bilirubin Urine Urobilinogen Ur Leukocyte Esterase ASSESSMENT/PLAN: 61 year old F with pmh of asthma, HTN, hyperlipidemia, diabetes, fibromyalgia, and migraines who presents to the emergency department with right sided flank pain placed into obs for symptomatic cholelithiasis. #Symptomatic cholelithiasis -PT/INR -T&S -Surgery Consulted, Manpreet Ng -IVF NS @ 100 cc/hr -Protonix 40 mg IV daliy -Morphine 1mg q4h prn #HTN -Continue Diovan 320 mg po daily #HLD -Continue lipitor 20 mg po HS #Asthma -Continue albuterol 2 puff q4h prn -Continue singulair 10 mg po hs #NIDDM -BGM achs -ISS achs #FEN/GI -IVF NS @ 100 cc/hr -wnl -NPO #PPx -SCDs -Protonix IV 40 mg daily Case Discussed with Team. Visit type - Emergency Visit Emergency Visit: Yes Care time: The patient presented to the Emergency Department on the above date and was hospitalized for further evaluation of their emergent condition. - New Patient This patient is new to me today: Yes Date on this admission: 06/22/17 - Critical Care Critical Care patient: No <Benson Reyna - Last Filed: 06/23/17 01:08> Ayla is seen and examined Agree with residents plan above CHIEF COMPLAINT: Right flank and RUQ abdominal pain x 1 week . Nausea with episodes of vomiting days In the ED received IV morphine x 3 with minimal relief Vital Signs Temperature 98.7 F 12/14/17 21:30 Pulse Rate 84 06/22/17 21:30 Respiratory Rate 18 06/22/17 21:30 Blood Pressure 162/84 06/22/17 21:30 O2 Sat by Pulse Oximetry (%) 95 06/22/17 21:30 HEART: Regular rate and rhythm, normal S1 and S2 without murmur, rub or gallop. ABDOMEN: Soft, +RUQ, RLQ tenderness, +distention, +guarding, no rebound, no masses. No hepatomegaly or splenomegaly. +Ellison's sign MUSCULOSKELETAL: Normal range of motion at all joints +Right CVA tenderness CMP Sodium 138 mmol/L (136-145) 06/22/17 15:36 Potassium 4.3 mmol/L (3.5-5.1) 06/22/17 15:36 Chloride 103 mmol/L (98-107) 06/22/17 15:36 Carbon Dioxide 27 mmol/L (21-32) 06/22/17 15:36 Anion Gap 8 (8-16) 06/22/17 15:36 BUN 12 mg/dL (7-18) D 06/22/17 15:36 Creatinine 0.7 mg/dL (0.55-1.02) 06/22/17 15:36 Creat Clearance w eGFR > 60 (>60) 06/22/17 15:36 Random Glucose 196 mg/dL (74-106) H 06/22/17 15:36 Calcium 9.0 mg/dL (8.5-10.1) 06/22/17 15:36 Total Bilirubin 0.3 mg/dL (0.2-1.0) D 06/22/17 15:36 AST 15 U/L (15-37) D 06/22/17 15:36 ALT 28 U/L (12-78) 06/22/17 15:36 Alkaline Phosphatase 88 U/L (45-117) 06/22/17 15:36 Creatine Kinase 71 IU/L (26-192) 06/22/17 16:30 Troponin I < 0.02 ng/ml (0.00-0.05) 06/22/17 16:30 Total Protein 6.7 g/dl (6.4-8.2) 06/22/17 15:36 Albumin 3.3 g/dl (3.4-5.0) L 06/22/17 15:36 Lipase 153 U/L (73-393) 06/22/17 15:36 CBC, BMP 06/22/17 15:36 06/22/17 15:36 US - cholelithiasis 1. Biliary colic - no evidence of acute cholecystitis 2. Intractible pain - 2/2 # 1 3. Obesity 4. DM 5. Suspected gastritis Plan : - NPO - IVF - Pain control with IV morphine - Zofran - surgical evaluation, if pain not improve consider cholecystectomy Based on patients intractable abdominal pain she meets medical necessity for initial hospitalization. However , without further documented plan for surgical intervention and ongoing need for pain control after first midnight , it is not clear if length of hospitalization will span across 2nd midnight . Observation for now. If patient undergoes cholecystectomy tomorrow and there is a need for postoperative observation and pain management - will re evaluate valuate for an inpatient admission .
[2017-06-22] MEDS ORDERED: MONTELUKAST NA 10 MG TABLET PO SCH (22:00)
[2017-06-22] MEDS ORDERED: ATORVASTATIN CA 20 MG TABLET (FP) PO SCH (22:00)
[2017-06-22 23:45] VITALS: BMI 40.6
[2017-06-22] MEDS: INSULIN SLIDING SCALE (NOVOLOG) 1 VIAL SQ SCH (23:57)
[2017-06-23] MEDS: SODIUM CHLORIDE 0.45% 1,000 ML IV SCH ×2 (00:02→10:16)
[2017-06-23] MEDS: morphine SULFATE 4 MG/ML VIAL IVPUSH PRN ×2 (01:34→05:55)
[2017-06-23] MEDS: INSULIN SLIDING SCALE (NOVOLOG) 1 VIAL SQ SCH ×3 (06:08→16:56)
[2017-06-23] MEDS ORDERED: SIMETHICONE 80 MG TAB.CHEW (FP) PO PRN (06:45)
[2017-06-23] MEDS ORDERED: SIMETHICONE 80 MG TAB.CHEW (FP) PO SCH (06:45)
[2017-06-23 08:38] LABS: BASO % 0.5 % (0-2.0); EOS % 2.1 % (0-4.5); MCH 28.2 pg (25.7-33.7); MCHC 31.5 g/dl (32.0-36.0); MEAN CELL VOLUME 89.6 fl (80-96); MEAN PLT VOLUME 9.5 fl (7.5-11.1); NEUT % 43.3 % (42.8-82.8); PLATELET COUNT 294 K/MM3 (134-434); RDW 14.7 % (11.6-15.6); WHITE BLOOD COUNT 9.3 K/mm3 (4.0-10.0)
[2017-06-23 08:45] LABS: ANION GAP 9 (8-16); CALCIUM 8.4 mg/dL (8.5-10.1); CO2 27 mmol/L (21-32); CREATININE 0.6 mg/dL (0.55-1.02); GLUCOSE,RANDOM 163 mg/dL (74-106); MAGNESIUM 1.7 mg/dL (1.8-2.4); PHOSPHOROUS 4.1 mg/dL (2.5-4.9)
--- NOTE | 2017-06-23 09:16 | EKG ---
Test Reason : Blood Pressure : / mmHG Vent. Rate : 084 BPM Atrial Rate : 084 BPM P-R Int : 184 ms QRS Dur : 078 ms QT Int : 354 ms P-R-T Axes : 049 -28 022 degrees QTc Int : 418 ms NORMAL SINUS RHYTHM INFERIOR INFARCT (CITED ON OR BEFORE 21-AUG-2014) ANTEROLATERAL INFARCT (CITED ON OR BEFORE 21-AUG-2014) ABNORMAL ECG WHEN COMPARED WITH ECG OF 22-JUN-2017 14:14, NO SIGNIFICANT CHANGE WAS FOUND Confirmed by ANNA ELLISON MD ([id number]) on 06/23/2017 9:16:12 AM Referred By: Confirmed By:ANNA ELLISON MD
[2017-06-23] MEDS ORDERED: PANTOPRAZOLE SODIUM 40 MG VIAL IVPUSH SCH (10:00)
[2017-06-23] MEDS ORDERED: ASPIRIN 81 MG CHEWABLE TABLETS PO SCH (10:00)
[2017-06-23] MEDS ORDERED: VALSARTAN 160 MG TABLET (UD) PO SCH (10:00)
--- NOTE | 2017-06-23 10:47 | PN ---
Progress Note (short form) - Note Progress Note: surgery spoke with pt on phone and reviewed films and labs. formal eval later today. possible acute choleycstitis vs colic. pt not interested in surgical management and not sure her gb is bad. added on lfts for today to monitor for change. will get HIDA. if positive patient would want cont conservative management. if negative would need other source of cont pain.
[2017-06-23 10:51] LABS: BILIRUBIN,TOTAL 0.4 mg/dL (0.2-1.0)
[2017-06-23 10:54] LABS: ALK PHOS 65 U/L (45-117); BILIRUBIN,DIRECT < 0.2 mg/dL (0.0-0.2); SGOT/AST 17 U/L (15-37); SGPT/ALT 24 U/L (12-78); TOT PROT 5.9 g/dl (6.4-8.2)
--- NOTE | 2017-06-23 11:25 | CON.GI ---
Consult Consult Specialty:: GI - History of Present Illness History of Present Illness: a 61 YOF with R flank/RUQ pain of few weeks. Worse over the last few days. 61 yof, with HTN, hyperlipidemia, diabetes, fibromyalgia, migraines, obesity Presents to the emergency department with with right sided flank pain that radiates to the back, shoulder, chest, LLQ x 1week. Severe, no alleviating, or aggravating factors. 3 episodes of non-bloody vomiting with nausea. No dysphagia , odynophagia, jaundice, chills. No diarrhea, melena, hematochezia, hematemesis. No history of EGD. On PPI for chronic GERD. No recent Abx, travel, exposure to ill. [place] of [facility] liver revealed normal CBD, GB with gallstones, steatosis, and hepatomegaly. Normal non-contrast CT - History Source History Provided By: Patient, Medical Record Limitations to Obtaining History: No Limitations - Past Medical History Cardio/Vascular: Yes: HTN Pulmonary: Yes: Asthma Endocrine: Yes: Diabetes Mellitus - Alcohol/Substance Use Hx Alcohol Use: No - Smoking History Smoking history: Never smoked Have you smoked in the past 12 months: No If you are a former smoker, when did you quit?: 1999 Home Medications - Allergies Allergies/Adverse Reactions: Allergies Allergy/AdvReac Type Severity Reaction Status Date / Time clindamycin Allergy Severe Rash Verified 06/22/17 13:45 amoxicillin Allergy Intermediate Rash Verified 06/22/17 13:45 Iodinated Contrast- Oral and Allergy Verified 06/22/17 13:45 IV Dye topiramate [From Topamax] Allergy Verified 06/22/17 13:45 - Home Medications Home Medications: Ambulatory Orders Aspirin [ASA -] 81 mg PO DAILY 07/29/14 Atorvastatin Ca [Lipitor] 20 mg PO HS 07/29/14 Esomeprazole Mag Trihydrate [Nexium] 20 mg PO DAILY 07/29/14 Exenatide [Byetta] 10 mcg SQ BID 07/29/14 Glyburide 10 mg PO BID 07/29/14 Insulin Detemir [Levemir Flextouch] 80 unit SQ BID 07/29/14 Metformin HCl [Metformin HCl ER] 1,000 mg PO BID 07/29/14 Montelukast Na [Singulair -] 10 mg PO HS 07/29/14 Valsartan [Diovan] 320 mg PO DAILY 07/29/14 Albuterol Sulfate Inhaler - [Ventolin HFA Inhaler -] 2 inh PO Q4H PRN 08/11/14 Calcium Carbonate/Vitamin D3 [Calcium 600-Vit D3 200 Tablet] 1 each PO DAILY Cyanocobalamin [Vitamin B12 -] 0 mcg PO DAILY 12/28/15 Tramadol HCl 50 mg PO DAILY PRN 12/28/15 Naproxen [Naprosyn -] 500 mg PO BID PRN #14 tablet 12/30/15 Diphenhydramine HCl [Benadryl -] 25 mg PO Q6H PRN #28 capsule 08/26/16 Epinephrine [Adrenaclick] 0.3 mg IJ ONCE PRN #2 auto.injct 08/26/16 Famotidine [Pepcid] 20 mg PO BID PRN #14 tablet 08/26/16 Fluconazole 150 mg PO ONCE PRN #2 tablet 08/26/16 Prednisone [Deltasone -] 60 mg PO DAILY #12 tablet 08/26/16 Family Disease History - Family Disease History Family History: Unremarkable (non-contributory) Review of Systems Findings/Remarks: as per H&P Physical Exam-GI Vital Signs: Vital Signs Temperature 98.1 F 06/23/17 09:00 Pulse Rate 80 06/23/17 09:00 Respiratory Rate 20 06/23/17 09:00 Blood Pressure 126/56 06/23/17 09:00 O2 Sat by Pulse Oximetry (%) 98 06/23/17 05:34 Constitutional: Yes: No Distress, Calm, Obese Eyes: Yes: Conjunctiva Clear HENT: Yes: Atraumatic Neck: Yes: Supple Cardiovascular: Yes: Regular Rate and Rhythm Respiratory: Yes: Regular Gastrointestinal Inspection: No: Distention ...Auscultate: Yes: Normoactive Bowel Sounds ...Palpate: Yes: Soft, Other (RUQ/Epigastric, superficial tenderness and sensetive to touch skin w/o any visible lesions). No: Firm/Rigid, Guarding, Tenderness, Rebound Neurological: Yes: Alert, Oriented Labs: CBC, BMP 06/23/17 07:00 06/23/17 07:00 Laboratory Results - last 24 hr 06/22/17 06/22/17 06/22/17 15:36 15:36 15:36 WBC 8.3 D RBC 4.82 Hgb 13.9 Hct 42.9 MCV 89.1 MCH 28.7 MCHC 32.3 RDW 14.5 Plt Count 320 MPV 9.5 Neutrophils % 50.2 D Lymphocytes % 38.8 D Monocytes % 7.7 Eosinophils % 2.1 D Basophils % 1.2 Sodium 138 Potassium 4.3 Chloride 103 Carbon Dioxide 27 Anion Gap 8 BUN 12 D Creatinine 0.7 Creat Clearance w eGFR > 60 POC Glucometer Random Glucose 196 H Calcium 9.0 Phosphorus Magnesium Total Bilirubin 0.3 D Direct Bilirubin AST 15 D ALT 28 Alkaline Phosphatase 88 Creatine Kinase Troponin I Total Protein 6.7 Albumin 3.3 L Lipase 153 Urine Color Ltyellow Urine Appearance Clear Urine pH 5.0 Ur Specific [place] 1.024 Urine Protein Negative Urine Glucose (UA) 3+ H Urine Ketones Trace H Urine Blood Negative Urine Nitrite Negative Urine Bilirubin Negative Urine Urobilinogen Negative Ur Leukocyte Esterase Negative 06/22/17 06/23/17 06/23/17 16:30 06:07 07:00 WBC 9.3 RBC 4.44 Hgb 12.5 D Hct 39.8 MCV 89.6 MCH 28.2 MCHC 31.5 L RDW 14.7 Plt Count 294 MPV 9.5 Neutrophils % 43.3 Lymphocytes % 44.6 H Monocytes % 9.5 Eosinophils % 2.1 Basophils % 0.5 Sodium Potassium Chloride Carbon Dioxide Anion Gap BUN Creatinine Creat Clearance w eGFR POC Glucometer 159 Random Glucose Calcium Phosphorus Magnesium Total Bilirubin Direct Bilirubin AST ALT Alkaline Phosphatase Creatine Kinase 71 Troponin I < 0.02 Total Protein Albumin Lipase Urine Color Urine Appearance Urine pH Ur Specific [place] Urine Protein Urine Glucose (UA) Urine Ketones Urine Blood Urine Nitrite Urine Bilirubin Urine Urobilinogen Ur Leukocyte Esterase 06/23/17 06/23/17 07:00 11:02 WBC RBC Hgb Hct MCV MCH MCHC RDW Plt Count MPV Neutrophils % Lymphocytes % Monocytes % Eosinophils % Basophils % Sodium 141 Potassium 4.1 Chloride 105 Carbon Dioxide 27 Anion Gap 9 BUN 10 Creatinine 0.6 Creat Clearance w eGFR POC Glucometer 182 Random Glucose 163 H Calcium 8.4 L Phosphorus 4.1 Magnesium 1.7 L Total Bilirubin 0.4 D Direct Bilirubin < 0.2 AST 17 ALT 24 Alkaline Phosphatase 65 D Creatine Kinase Troponin I Total Protein 5.9 L Albumin 3.0 L Lipase Urine Color Urine Appearance Urine pH Ur Specific [place] Urine Protein Urine Glucose (UA) Urine Ketones Urine Blood Urine Nitrite Urine Bilirubin Urine Urobilinogen Ur Leukocyte Esterase Imaging - Results Cat Scan: Report Reviewed Ultrasound: Report Reviewed Problem List - Problems (1) Epigastric abdominal pain Code(s): R10.13 - EPIGASTRIC PAIN (2) Epigastric abdominal tenderness Code(s): R10.816 - EPIGASTRIC ABDOMINAL TENDERNESS (3) Symptomatic cholelithiasis Code(s): K80.20 - CALCULUS OF GALLBLADDER W/O CHOLECYSTITIS W/O OBSTRUCTION (4) Cholelithiasis Code(s): K80.20 - CALCULUS OF GALLBLADDER W/O CHOLECYSTITIS W/O OBSTRUCTION (5) GERD (gastroesophageal reflux disease) Code(s): K21.9 - GASTRO-ESOPHAGEAL REFLUX DISEASE WITHOUT ESOPHAGITIS Assessment/Plan A 61 yof with the above complaints and findings. No signs of inflammation, or biliary obstruction. ?Symptomatic cholelithiasis. ?PUD, gastritis, esophagitis, duodenitis. ?Fibromyalgia component, ?IBS HIDA Hepatic panel, direct bili, CBC, ESR, CRP NPO Sx evaluation EGD
[2017-06-23 14:11] VITALS: BP 146/76; PULSE 81; TEMP 97.9
--- NOTE | 2017-06-23 15:13 | PN ---
Teaching Attending Note Name of Resident: Snehal Cortez ATTENDING PHYSICIAN STATEMENT I saw and evaluated the patient. I reviewed the resident's note and discussed the case with the resident. I agree with the resident's findings and plan as documented. SUBJECTIVE: Denies any pain at this time. has no N/V . OBJECTIVE: NAD, Awake , alert. cooperative Cv: RRR Lungs: CTAB Ext: no edema Abd: obese, TTP in RUQ. No rebound tenderness or guarding. Nl B S. ASSESSMENT AND PLAN: 61 y/o lady who presented with Abd pain and was found to have evidence of acute cholecysttis 1- Acute cholecystitis: HIDA report is pending. , per GI review, there is no passage of dye after 2 hrs. this indicates Acute cholecystitis. - give IV levaqin and flagyl now - d/w pt the need for Cholecystectomy, but she declined. risks of sepsis, perforation and bacteremia are explained but she still refused. she verbalized to understand the consequences - pt is willing to go see her surgeon for this procedure - will prescribe levaquin and flagyl x 1 week - start diet d/w dr. hartmann 2- continue all her medications for her chronic problems dc home if tolerates diet
[2017-06-23] MEDS ORDERED: LEVOFLOXACIN 500 MG IVPB 500 MG/100 ML BAG IVPB ONE (15:15)
[2017-06-23] MEDS ORDERED: METRONIDAZOLE 500 MG PREMIXED 500 MG/100 ML MG IVPB ONE (15:15)
[2017-06-23] MEDS ORDERED: MAGNESIUM SULF 50% (8.12 MEQ/2 ML-1 GM VIAL) IVPB ONE (15:18)
[2017-06-23] MEDS ORDERED: MAGNESIUM OXIDE 400 MG TABLET (FP) PO ONE (15:20)
--- NOTE | 2017-06-24 10:46 | CONS ---
DATE OF CONSULTATION: 06/23/2017 REASON FOR CONSULTATION: Acute cholecystitis, cholelithiasis. This is an emergency room consultation at the request of the emergency room physician. BRIEF HISTORY: A 61-year-old female morbidly obese who presents to [facility] with a [id number]-[id number] of right-sided abdominal pain radiating to her back as well as her shoulder. While in the emergency room, she had an ultrasound done, which showed gallstones. She had a CAT scan done, which showed a noninflamed gallbladder. She was admitted to the hospital, started on intravenous antibiotics, and states she feels better. She went for a HIDA scan this afternoon, which showed no filling of the gallbladder after 2 hours. The patient has stated that she has no interest in having surgery, and she is not even convinced that her gallbladder needs to come out and is unsure why she is seeing a surgeon. PAST MEDICAL HISTORY: Significant for hypertension, diabetes, hyperlipidemia, fibromyalgia, and gallstones. PAST SURGICAL HISTORY: Includes a bilateral inguinal hernia repair and an orthopaedic procedure. SOCIAL HISTORY: Significant for quitting tobacco. Negative for alcohol. ALLERGIES: CLINDAMYCIN, AMOXICILLIN, TOPAMAX. HOME MEDICATIONS: Include aspirin, Lipitor, Nexium, glyburide insulin, Singulair, prednisone. FAMILY HISTORY: Noncontributory. REVIEW OF SYSTEMS: General: Denies fatigue or malaise. Cardiac: Denies chest pain or palpitations. Respiratory: Denies shortness of breath or wheeze. Gastrointestinal: As in HPI. Denies blood in her stool. Denies blood in her vomit. Denies recent weight loss. Genitourinary: Denies dysuria. Musculoskeletal: Denies joint pain or joint swelling. Psychiatric: Denies anxiety, depression, or hearing voices. PHYSICAL EXAMINATION: General: This is a morbidly obese 61-year-old female in no distress. Vital Signs: She is afebrile. HEENT: Her head is normocephalic. Her sclerae are anicteric. Neck: Supple. Chest: Clear. Abdomen: Soft. She has minimal right upper quadrant tenderness. She has no obvious hernias. She has no rebound, no guarding. Extremities: No edema. LABORATORY: On review of her laboratory, her white blood cell count is normal at 9.3. There is no shift. Her chemistries are unremarkable with normal liver function tests. Her urinalysis is unremarkable as well. Her imaging is as stated in HPI. ASSESSMENT: This is a 61-year-old female with right-sided abdominal pain radiating to her back, which has improved while in the hospital. At this point, clinically she may have acute cholecystitis. She is not interested in surgical management. She states perhaps in the future. At this point, she is starving and wishes to have food and is actually demanding food. I will put her on a low-fat diet. If she tolerates, she can be discharged home on oral antibiotics. She can follow with me or her own surgeon to consider elective cholecystectomy. If she fails medical management, she will admit through a window for acute surgery in the acute setting and, therefore, will require a percutaneous drainage of her gallbladder. This would only be indicated if she was unable to tolerate diet or had fevers. At this point, it is possible she can be discharged today or tomorrow, and she appears to be nontoxic. DO NATHANIEL OLMEDO/[id number]
--- NOTE | 2017-06-25 07:39 | HOSP ---
Subjective - Review of Symptoms Events since last encounter: final HIDA reviewed, and d/w Dr. Ng. the pt does not have acute obstruction in cystic duct. but has chronic cholecystitis is suggested. the pt was called and she was asked to stop her abx and see her surgeon in next 2-3 days to arrange for CCY Physical Examination Vital Signs: Vital Signs Temperature 97.9 F 06/23/17 14:10 Pulse Rate 81 06/23/17 14:10 Respiratory Rate 16 06/23/17 14:10 Blood Pressure 146/76 06/23/17 14:10 O2 Sat by Pulse Oximetry (%) 98 06/23/17 05:34 Labs: CBC, BMP 06/23/17 07:00 06/23/17 07:00
--- NOTE | 2017-06-29 16:33 | EKG ---
Test Reason : Blood Pressure : / mmHG Vent. Rate : 083 BPM Atrial Rate : 083 BPM P-R Int : 184 ms QRS Dur : 080 ms QT Int : 356 ms P-R-T Axes : 042 -27 024 degrees QTc Int : 418 ms NORMAL SINUS RHYTHM LOW VOLTAGE QRS INFERIOR INFARCT , AGE UNDETERMINED CANNOT RULE OUT ANTERIOR INFARCT (CITED ON OR BEFORE 21-AUG-2014) ABNORMAL ECG WHEN COMPARED WITH ECG OF 26-AUG-2016 21:24, NO SIGNIFICANT CHANGE WAS FOUND Confirmed by IVELISSE ANDRES MD ([id number]) on 06/29/2017 4:33:04 PM Referred By: Confirmed By:IVELISSE ANDRES MD
== END 2017-06-23 18:30 | disposition home or self-care (01) | DRG 445 ==
LOC: JER 13:30 → JERBED 21:07 → J6S 22:57 → OBSVTOIN 06-23 14:47
PROVIDERS: ADMIT Internal Medicine; ATTEND Internal Medicine
DX: K81.0 Acute cholecystitis (principal); Z68.41 Body mass index [BMI] 40.0-44.9, adult; I10 Essential (primary) hypertension; J45.909 Unspecified asthma, uncomplicated; E78.5 Hyperlipidemia, unspecified; E11.9 Type 2 diabetes mellitus without complications; M79.7 Fibromyalgia; G43.909 Migraine, unspecified, not intractable, without status migrainosus; Z79.4 Long term (current) use of insulin; Z87.891 Personal history of nicotine dependence; K21.9 Gastro-esophageal reflux disease without esophagitis; E66.01 Morbid (severe) obesity due to excess calories
CPT/HCPCS: 36415; 74176-TC; 76705-TC; 78226-TC; 80048; 80053; 80076; 81003; 82550; 83690; 83735; 84100; 84484; 85025; 86140; 87086; 93005; 93010; 99285-25; A9537; G0378

== ENCOUNTER 2020-12-11 17:57 | Inpatient (IN) | payer OTHER ==
[2020-12-11 18:07] VITALS: BMI 39.6
[2020-12-11 19:09] LABS: EOS % 1.6 % (0-4.5); HEMATOCRIT 40.6 % (32.4-45.2); HEMOGLOBIN 12.8 GM/dL (10.7-15.3); LYMPH % 36.1 % (8-40); MCH 27.7 pg (25.7-33.7); MCHC 31.5 g/dl (32.0-36.0); MEAN CELL VOLUME 87.9 fl (80-96); MEAN PLT VOLUME 9.7 fl (7.5-11.1); MONO % 10.3 % (3.8-10.2); PLATELET COUNT 360 K/MM3 (134-434); RBC 4.62 M/mm3 (3.60-5.2); RDW 15.8 % (11.6-15.6); WHITE BLOOD COUNT 11.6 K/mm3 (4.0-10.0)
[2020-12-11] MEDS ORDERED: oxyCODONE HCL 5 MG TABLET PO ONE (19:24)
[2020-12-11 19:27] LABS: CHLORIDE 106 mmol/L (98-107); SODIUM 141 mmol/L (136-145)
[2020-12-11 19:28] LABS: ALBUMIN 3.4 g/dl (3.4-5.0); ANION GAP 9 MMOL/L (8-16); BLOOD UREA NITROGEN 12.6 mg/dL (7-18); CO2 26 mmol/L (21-32); GLUCOSE,RANDOM 187 mg/dL (74-106)
[2020-12-11 19:32] LABS: CREATININE 0.7 mg/dL (0.55-1.3); SGOT/AST 28 U/L (15-37); SGPT/ALT 37 U/L (13-61)
[2020-12-11 19:34] LABS: BILIRUBIN,TOTAL 0.3 mg/dL (0.2-1); TOT PROT 6.7 g/dl (6.4-8.2)
[2020-12-11 19:35] LABS: ALK PHOS 89 U/L (45-117)
[2020-12-11] MEDS ORDERED: oxyCODONE HCL 5 MG TABLET ONE (19:51)
[2020-12-12] MEDS ORDERED: diphenhydrAMINE HCL 25 MG CAPSULE (FP) PO ONE (00:12)
[2020-12-12] MEDS ORDERED: FUROSEMIDE 40 MG/4 ML INJECTABLE VIAL IVPUSH ONE (00:16)
[2020-12-12] MEDS ORDERED: ALBUTEROL SO4 0.083% IH SOL 2.5 MG/3 ML VIAL.NEB. NEB PRN (01:35)
[2020-12-12] MEDS ORDERED: PATIENT'S OWN MEDICATION (NON-FORMULARY) (Meloxicam [Meloxicam] 15 MG Tablet) PO PRN (01:35)
[2020-12-12] MEDS: INSULIN SLIDING SCALE (NOVOLOG) 1 VIAL SQ SCH ×4 (06:35→21:28)
[2020-12-12 07:06] LABS: BASO % 0.6 % (0-2.0); EOS % 1.8 % (0-4.5); HEMATOCRIT 38.4 % (32.4-45.2); HEMOGLOBIN 12.4 GM/dL (10.7-15.3); LYMPH % 37.3 % (8-40); MCH 28.2 pg (25.7-33.7); MCHC 32.2 g/dl (32.0-36.0); MEAN CELL VOLUME 87.6 fl (80-96); MEAN PLT VOLUME 9.5 fl (7.5-11.1); MONO % 10.8 % (3.8-10.2); NEUT % 49.5 % (42.8-82.8); PLATELET COUNT 340 K/MM3 (134-434); RBC 4.38 M/mm3 (3.60-5.2); RDW 15.9 % (11.6-15.6); WHITE BLOOD COUNT 11.3 K/mm3 (4.0-10.0)
[2020-12-12 07:48] LABS: ALBUMIN 3.2 g/dl (3.4-5.0); BLOOD UREA NITROGEN 13.4 mg/dL (7-18); CALCIUM 9.1 mg/dL (8.5-10.1)
[2020-12-12 07:50] LABS: BILIRUBIN,TOTAL 0.5 mg/dL (0.2-1); MAGNESIUM 1.8 mg/dL (1.8-2.4); TOT PROT 6.4 g/dl (6.4-8.2)
[2020-12-12 07:51] LABS: PHOSPHOROUS 4.4 mg/dL (2.5-4.9)
[2020-12-12 07:52] LABS: CREATININE 0.8 mg/dL (0.55-1.3)
[2020-12-12] MEDS: oxyCODONE HCL 5 MG TABLET PO PRN (09:26)
[2020-12-12] MEDS: ASPIRIN COATED 81 MG TABLET.EC PO SCH (09:27)
[2020-12-12] MEDS: PANTOPRAZOLE 20 MG TABLET PO SCH (09:27)
[2020-12-12] MEDS: HYDROCHLOROTHIAZIDE 25 MG TABLET (FP) PO SCH (09:27)
[2020-12-12] MEDS: LOSARTAN POTASSIUM 50 MG TABLET PO SCH (09:27)
[2020-12-12] MEDS: CHOLECALCIFEROL (VIT D3) 1,000 UNIT (25 MCG) TABLET PO SCH (09:27)
[2020-12-12] MEDS: amLODIPine BESYLATE 5 MG TABLET (FP) PO SCH (09:27)
[2020-12-12] MEDS: ENOXAPARIN NA (PORCINE) 40 MG/0.4 ML DISP.SYRIN SQ SCH (09:28)
[2020-12-12] MEDS: FUROSEMIDE 40 MG/4 ML INJECTABLE VIAL IVPUSH SCH (09:28)
[2020-12-12] MEDS ORDERED: CYANOCOBALAMIN 1,000 MCG TABLET (FP) PO SCH ×2 (10:00)
[2020-12-12 11:41] LABS: EPI CELLS 36 /uL (0-25.1); HYALINE CASTS 2 /uL (0-3.1); PH,URINE 5.5 (5.0-8.0); URINE APPEARANCE CLOUDY; URINE BACTERIA 3317 /uL (0-1359); URINE BILIRUBIN NEGATIVE (NEGATIVE); URINE COLOR YELLOW; URINE GLUCOSE (UA) NEGATIVE (NEGATIVE); URINE KETONE NEGATIVE (NEGATIVE); URINE LEUK ESTERASE 3+ (NEGATIVE); URINE NITRITE NEGATIVE (NEGATIVE); URINE PROTEIN NEGATIVE (NEGATIVE); URINE RBC 20 /uL (0-23.9); URINE UROBILINOGEN 0.2 mg/dL (0.2-1.0); URINE WBC 189 /uL (0-25.8)
[2020-12-12] MEDS: ZINC OXIDE 20% TOPICAL OINTMENT 30 GM TUBE TP SCH (12:10)
[2020-12-12] MEDS: NYSTATIN POWDER 100,000 UNITS/GM - 15 GM TOPICAL POWDER TP SCH (12:10)
[2020-12-12] MEDS ORDERED: PT OWN MED DRAWER 7, Y5N ONE (12:17)
[2020-12-12] MEDS: CYANOCOBALAMIN (VITAMIN B-12) 100 MCG TABLET PO SCH (13:24)
[2020-12-12] MEDS: ATORVASTATIN CA 40 MG TABLET (FP) PO SCH (21:24)
[2020-12-12] MEDS: GABAPENTIN 400 MG CAPSULE PO SCH (21:24)
[2020-12-12] MEDS ORDERED: INSULIN (LEVEMIR) 100 UNITS/ML UNITS SQ ONE (22:27)
[2020-12-12] MEDS: INSULIN (LEVEMIR) 100 UNITS/ML UNITS SQ SCH (22:45)
[2020-12-13] MEDS: INSULIN (LEVEMIR) 100 UNITS/ML UNITS SQ SCH ×2 (06:28→21:30)
[2020-12-13] MEDS: INSULIN SLIDING SCALE (NOVOLOG) 1 VIAL SQ SCH ×4 (06:29→21:31)
[2020-12-13] MEDS ORDERED: INSULIN (LEVEMIR) 100 UNITS/ML UNITS SQ SCH (07:42)
[2020-12-13] MEDS: oxyCODONE HCL 5 MG TABLET PO PRN (08:57)
[2020-12-13] MEDS: HYDROCHLOROTHIAZIDE 25 MG TABLET (FP) PO SCH (10:09)
[2020-12-13] MEDS: PANTOPRAZOLE 20 MG TABLET PO SCH (10:09)
[2020-12-13] MEDS: amLODIPine BESYLATE 5 MG TABLET (FP) PO SCH (10:10)
[2020-12-13] MEDS: CHOLECALCIFEROL (VIT D3) 1,000 UNIT (25 MCG) TABLET PO SCH (10:10)
[2020-12-13] MEDS: ASPIRIN COATED 81 MG TABLET.EC PO SCH (10:10)
[2020-12-13] MEDS: LOSARTAN POTASSIUM 50 MG TABLET PO SCH (10:10)
[2020-12-13] MEDS: FUROSEMIDE 40 MG/4 ML INJECTABLE VIAL IVPUSH SCH (10:11)
[2020-12-13] MEDS: ENOXAPARIN NA (PORCINE) 40 MG/0.4 ML DISP.SYRIN SQ SCH (10:12)
[2020-12-13] MEDS: CYANOCOBALAMIN (VITAMIN B-12) 100 MCG TABLET PO SCH (10:12)
[2020-12-13] MEDS: ZINC OXIDE 20% TOPICAL OINTMENT 30 GM TUBE TP SCH (10:13)
[2020-12-13] MEDS: NYSTATIN POWDER 100,000 UNITS/GM - 15 GM TOPICAL POWDER TP SCH (10:13)
[2020-12-13 11:01] LABS: BASO % 0.9 % (0-2.0); EOS % 2.1 % (0-4.5); HEMATOCRIT 39.8 % (32.4-45.2); HEMOGLOBIN 12.7 GM/dL (10.7-15.3); MCH 28.1 pg (25.7-33.7); MEAN CELL VOLUME 87.9 fl (80-96); MEAN PLT VOLUME 9.4 fl (7.5-11.1); MONO % 12.3 % (3.8-10.2); NEUT % 51.7 % (42.8-82.8); PLATELET COUNT 346 K/MM3 (134-434); RBC 4.52 M/mm3 (3.60-5.2); RDW 15.6 % (11.6-15.6); WHITE BLOOD COUNT 9.7 K/mm3 (4.0-10.0)
[2020-12-13 11:20] LABS: ALBUMIN 3.3 g/dl (3.4-5.0); CALCIUM 9.4 mg/dL (8.5-10.1)
[2020-12-13 11:21] LABS: BLOOD UREA NITROGEN 23.5 mg/dL (7-18); MAGNESIUM 1.9 mg/dL (1.8-2.4)
[2020-12-13 11:25] LABS: BILIRUBIN,TOTAL 0.4 mg/dL (0.2-1); TOT PROT 6.8 g/dl (6.4-8.2)
[2020-12-13] MEDS: GABAPENTIN 400 MG CAPSULE PO SCH ×2 (20:38→21:33)
[2020-12-13] MEDS ORDERED: INSULIN (NOVOLOG) ASPART 100 UNITS/ML 10ML VIAL ONE (21:26)
[2020-12-13] MEDS: ATORVASTATIN CA 40 MG TABLET (FP) PO SCH (21:30)
[2020-12-14] MEDS: INSULIN SLIDING SCALE (NOVOLOG) 1 VIAL SQ SCH ×4 (06:53→21:58)
[2020-12-14] MEDS: INSULIN (LEVEMIR) 100 UNITS/ML UNITS SQ SCH ×2 (06:54→21:58)
[2020-12-14 07:35] LABS: BASO % 0.7 % (0-2.0); EOS % 2.2 % (0-4.5); HEMATOCRIT 40.4 % (32.4-45.2); HEMOGLOBIN 12.8 GM/dL (10.7-15.3); LYMPH % 40.2 % (8-40); MCH 28.3 pg (25.7-33.7); MCHC 31.7 g/dl (32.0-36.0); MEAN CELL VOLUME 89.1 fl (80-96); MEAN PLT VOLUME 9.8 fl (7.5-11.1); MONO % 10.3 % (3.8-10.2); NEUT % 46.6 % (42.8-82.8); PLATELET COUNT 336 K/MM3 (134-434); RBC 4.54 M/mm3 (3.60-5.2); RDW 15.8 % (11.6-15.6); WHITE BLOOD COUNT 10.2 K/mm3 (4.0-10.0)
[2020-12-14] MEDS ORDERED: INSULIN (LEVEMIR) 100 UNITS/ML UNITS SQ SCH (07:45)
[2020-12-14 07:47] LABS: ALBUMIN 3.3 g/dl (3.4-5.0); BLOOD UREA NITROGEN 27.7 mg/dL (7-18); CALCIUM 9.1 mg/dL (8.5-10.1)
[2020-12-14 07:51] LABS: BILIRUBIN,TOTAL 0.6 mg/dL (0.2-1); CREATININE 1.1 mg/dL (0.55-1.3)
[2020-12-14] MEDS ORDERED: PT OWN MED DRAWER 7, Y5N ONE (10:06)
[2020-12-14] MEDS ORDERED: diphenhydrAMINE HCL 25 MG CAPSULE (FP) PO PRN (10:32)
[2020-12-14] MEDS: amLODIPine BESYLATE 5 MG TABLET (FP) PO SCH (10:36)
[2020-12-14] MEDS: PANTOPRAZOLE 20 MG TABLET PO SCH (10:36)
[2020-12-14] MEDS: CYANOCOBALAMIN (VITAMIN B-12) 100 MCG TABLET PO SCH (10:36)
[2020-12-14] MEDS: LOSARTAN POTASSIUM 50 MG TABLET PO SCH (10:37)
[2020-12-14] MEDS: ASPIRIN COATED 81 MG TABLET.EC PO SCH (10:37)
[2020-12-14] MEDS: HYDROCHLOROTHIAZIDE 25 MG TABLET (FP) PO SCH (10:37)
[2020-12-14] MEDS: CHOLECALCIFEROL (VIT D3) 1,000 UNIT (25 MCG) TABLET PO SCH (10:37)
[2020-12-14] MEDS: ENOXAPARIN NA (PORCINE) 40 MG/0.4 ML DISP.SYRIN SQ SCH (10:37)
[2020-12-14] MEDS: ZINC OXIDE 20% TOPICAL OINTMENT 30 GM TUBE TP SCH (10:38)
[2020-12-14] MEDS: NYSTATIN POWDER 100,000 UNITS/GM - 15 GM TOPICAL POWDER TP SCH (10:38)
[2020-12-14] MEDS: FUROSEMIDE 40 MG/4 ML INJECTABLE VIAL IVPUSH SCH (11:30)
[2020-12-14] MEDS ORDERED: INSULIN (NOVOLOG) ASPART 100 UNITS/ML 10ML VIAL SQ ONE (18:12)
[2020-12-14] MEDS: GABAPENTIN 400 MG CAPSULE PO SCH (21:58)
[2020-12-14] MEDS: ATORVASTATIN CA 40 MG TABLET (FP) PO SCH (21:58)
[2020-12-14] MEDS ORDERED: MONTELUKAST NA 10 MG TABLET PO SCH (22:00)
[2020-12-15] MEDS: INSULIN SLIDING SCALE (NOVOLOG) 1 VIAL SQ SCH ×3 (06:23→16:44)
[2020-12-15] MEDS: INSULIN (LEVEMIR) 100 UNITS/ML UNITS SQ SCH (06:24)
[2020-12-15 07:10] LABS: BASO % 0.2 % (0-2.0); EOS % 2.5 % (0-4.5); HEMATOCRIT 40.5 % (32.4-45.2); HEMOGLOBIN 12.8 GM/dL (10.7-15.3); LYMPH % 43.8 % (8-40); MCH 28.2 pg (25.7-33.7); MCHC 31.7 g/dl (32.0-36.0); MEAN CELL VOLUME 89.1 fl (80-96); MEAN PLT VOLUME 9.7 fl (7.5-11.1); MONO % 11.2 % (3.8-10.2); NEUT % 42.3 % (42.8-82.8); PLATELET COUNT 325 K/MM3 (134-434); RBC 4.55 M/mm3 (3.60-5.2); WHITE BLOOD COUNT 9.9 K/mm3 (4.0-10.0)
[2020-12-15 07:39] LABS: ALBUMIN 3.3 g/dl (3.4-5.0); BLOOD UREA NITROGEN 27.6 mg/dL (7-18); CALCIUM 9.6 mg/dL (8.5-10.1)
[2020-12-15 07:43] LABS: BILIRUBIN,TOTAL 0.5 mg/dL (0.2-1); TOT PROT 6.7 g/dl (6.4-8.2)
[2020-12-15] MEDS ORDERED: ACETAMINOPHEN/CAFFEINE/BUTALBITAL 1 TAB PO PRN (09:03)
[2020-12-15] MEDS ORDERED: GABAPENTIN 400 MG CAPSULE PO SCH (10:00)
[2020-12-15] MEDS ORDERED: FUROSEMIDE 40 MG/4 ML INJECTABLE VIAL IVPUSH SCH (10:00)
[2020-12-15] MEDS ORDERED: FUROSEMIDE 40 MG TABLET (FP) PO SCH (10:00)
[2020-12-15] MEDS: CHOLECALCIFEROL (VIT D3) 1,000 UNIT (25 MCG) TABLET PO SCH (10:13)
[2020-12-15] MEDS: PANTOPRAZOLE 20 MG TABLET PO SCH (10:13)
[2020-12-15] MEDS: ENOXAPARIN NA (PORCINE) 40 MG/0.4 ML DISP.SYRIN SQ SCH (10:13)
[2020-12-15] MEDS: LOSARTAN POTASSIUM 50 MG TABLET PO SCH (10:14)
[2020-12-15] MEDS: HYDROCHLOROTHIAZIDE 25 MG TABLET (FP) PO SCH (10:14)
[2020-12-15] MEDS: amLODIPine BESYLATE 5 MG TABLET (FP) PO SCH (10:14)
[2020-12-15] MEDS: CYANOCOBALAMIN (VITAMIN B-12) 100 MCG TABLET PO SCH (10:14)
[2020-12-15] MEDS: ASPIRIN COATED 81 MG TABLET.EC PO SCH (10:14)
[2020-12-15] MEDS: ZINC OXIDE 20% TOPICAL OINTMENT 30 GM TUBE TP SCH (10:18)
[2020-12-15] MEDS: NYSTATIN POWDER 100,000 UNITS/GM - 15 GM TOPICAL POWDER TP SCH (10:18)
[2020-12-15 14:28] VITALS: BP 121/56; PULSE 73; TEMP 98.2
== END 2020-12-15 18:27 | disposition home health service (06) | DRG 291 ==
LOC: JER 17:57 → JERBED 19:53 → J4W 22:56
PROVIDERS: ADMIT Internal Medicine; ATTEND Nurse Practitioner Family
DX: I13.0 Hypertensive heart and chronic kidney disease with heart failure and stage 1 through stage 4 chronic kidney disease, or unspecified chronic kidney disease (principal); I50.33 Acute on chronic diastolic (congestive) heart failure; Z68.41 Body mass index [BMI] 40.0-44.9, adult; J44.9 Chronic obstructive pulmonary disease, unspecified; E11.22 Type 2 diabetes mellitus with diabetic chronic kidney disease; E66.01 Morbid (severe) obesity due to excess calories; G47.33 Obstructive sleep apnea (adult) (pediatric); K21.9 Gastro-esophageal reflux disease without esophagitis; E78.5 Hyperlipidemia, unspecified; E11.42 Type 2 diabetes mellitus with diabetic polyneuropathy; N18.9 Chronic kidney disease, unspecified
CPT/HCPCS: 36415; 70450-TC; 71045-TC-FY; 80053; 80061; 81003; 82550; 82553; 82962; 83036; 83721; 83735; 83880; 84100; 84443; 84484; 85025; 86769; 87086; 93005; 93010; 93306-TC; 93970-TC; 94640; 94660; 94761; 97116-GP; 97161-GP; 99285-25; C9803; U0003; U0005

== ENCOUNTER 2021-07-09 12:40 | Inpatient (IN) | payer OTHER ==
[2021-07-09] MEDS ORDERED: ACETAMINOPHEN 1000 MG/100 ML BAG IVPB ONE (13:51)
[2021-07-09 14:20] VITALS: BMI 38.2
[2021-07-09] MEDS ORDERED: ACETAMINOPHEN INJECTION 100 ML IVPB ONE (14:23)
[2021-07-09 14:43] LABS: BASO % 1.2 % (0-2.0); EOS % 1.3 % (0-4.5); HEMATOCRIT 41.3 % (32.4-45.2); HEMOGLOBIN 13.1 GM/dL (10.7-15.3); LYMPH % 33.8 % (8-40); MCH 28.8 pg (25.7-33.7); MCHC 31.7 g/dl (32.0-36.0); MEAN CELL VOLUME 90.7 fl (80-96); MEAN PLT VOLUME 10.2 fl (7.5-11.1); MONO % 8.1 % (3.8-10.2); NEUT % 55.6 % (42.8-82.8); PLATELET COUNT 327 10^3/uL (134-434); RBC 4.55 M/mm3 (3.60-5.2); RDW 14.7 % (11.6-15.6); WHITE BLOOD COUNT 10.2 K/mm3 (4.0-10.0)
[2021-07-09 15:04] LABS: CHLORIDE 107 mmol/L (98-107); SODIUM 143 mmol/L (136-145)
[2021-07-09 15:05] LABS: CALCIUM 8.8 mg/dL (8.5-10.1)
[2021-07-09 15:06] LABS: GLUCOSE,RANDOM 213 mg/dL (74-106)
[2021-07-09 15:07] LABS: ALBUMIN 3.4 g/dl (3.4-5.0); ANION GAP 9 MMOL/L (8-16); BLOOD UREA NITROGEN 17.1 mg/dL (7-18); CO2 28 mmol/L (21-32)
[2021-07-09 15:09] LABS: SGOT/AST 26 U/L (15-37); SGPT/ALT 31 U/L (13-61)
[2021-07-09 15:11] LABS: BILIRUBIN,TOTAL 0.2 mg/dL (0.2-1); TOT PROT 7.1 g/dl (6.4-8.2)
[2021-07-09 15:13] LABS: ALK PHOS 87 U/L (45-117)
[2021-07-09 15:25] LABS: EPI CELLS 20 /uL (0-25.1); HYALINE CASTS 1 /uL (0-3.1); URINE APPEARANCE CLEAR; URINE BACTERIA 79 /uL (0-1359); URINE BILIRUBIN NEGATIVE (NEGATIVE); URINE COLOR YELLOW; URINE GLUCOSE (UA) 2+ (NEGATIVE); URINE KETONE NEGATIVE (NEGATIVE); URINE LEUK ESTERASE TRACE (NEGATIVE); URINE NITRITE NEGATIVE (NEGATIVE); URINE PROTEIN NEGATIVE (NEGATIVE); URINE RBC 25 /uL (0-23.9); URINE UROBILINOGEN 0.2 mg/dL (0.2-1.0); URINE WBC 17 /uL (0-25.8)
[2021-07-09] MEDS ORDERED: FUROSEMIDE 40 MG/4 ML INJECTABLE VIAL IVPUSH ONE (22:39)
[2021-07-09] MEDS: GABAPENTIN 400 MG CAPSULE PO SCH (23:45)
[2021-07-09] MEDS ORDERED: FUROSEMIDE 40 MG/4 ML INJECTABLE VIAL ONE (23:45)
[2021-07-09] MEDS: BUDESONIDE/FORMETEROL FUMARATE 80/4.5 mcg INHALER IH SCH (23:50)
[2021-07-10] MEDS ORDERED: LEVALBUTEROL HCL 0.31 MG/3 ML VIAL.NEB IH PRN (01:02)
[2021-07-10 03:48] LABS: ALLENS TEST POSITIVE; ARTERIAL BLD GAS O2 SATURATION 93.1 % (95-98); ARTERIAL BLOOD GAS BASE EXCESS -0.7 mmol/L (-2-2); ARTERIAL BLOOD GAS PO2 66.5 mmHg (80-100); ARTERIAL BLOOD GAS pH 7.393 (7.350-7.450)
[2021-07-10] MEDS: GABAPENTIN 400 MG CAPSULE PO SCH ×3 (06:32→21:54)
[2021-07-10] MEDS ORDERED: INSULIN SLIDING SCALE (NOVOLOG) 1 VIAL SQ SCH (07:00)
[2021-07-10 07:40] LABS: BASO % 0.6 % (0-2.0); HEMATOCRIT 38.3 % (32.4-45.2); HEMOGLOBIN 11.8 GM/dL (10.7-15.3); LYMPH % 34.7 % (8-40); MCH 28.2 pg (25.7-33.7); MCHC 30.7 g/dl (32.0-36.0); MEAN CELL VOLUME 91.7 fl (80-96); MEAN PLT VOLUME 10.2 fl (7.5-11.1); MONO % 7.4 % (3.8-10.2); NEUT % 56.3 % (42.8-82.8); PLATELET COUNT 280 10^3/uL (134-434); RBC 4.18 M/mm3 (3.60-5.2); RDW 14.8 % (11.6-15.6); WHITE BLOOD COUNT 12.1 K/mm3 (4.0-10.0)
[2021-07-10 08:09] LABS: BLOOD UREA NITROGEN 21.8 mg/dL (7-18); CALCIUM 8.2 mg/dL (8.5-10.1); MAGNESIUM 1.3 mg/dL (1.8-2.4)
[2021-07-10 08:12] LABS: PHOSPHOROUS 4.8 mg/dL (2.5-4.9)
[2021-07-10 08:13] LABS: CREATININE 1.3 mg/dL (0.55-1.3)
[2021-07-10 08:14] LABS: BILIRUBIN,TOTAL 0.4 mg/dL (0.2-1); TOT PROT 6.2 g/dl (6.4-8.2)
[2021-07-10 08:29] LABS: ALBUMIN 3.1 g/dl (3.4-5.0)
[2021-07-10] MEDS ORDERED: methylPREDNISolone NA SUCC 40 MG/1 ML VIAL ONE (10:59)
[2021-07-10] MEDS: ENOXAPARIN NA (PORCINE) 40 MG/0.4 ML DISP.SYRIN SQ SCH (11:11)
[2021-07-10] MEDS: INSULIN SLIDING SCALE (NOVOLOG) 1 VIAL SQ SCH ×3 (11:11→21:54)
[2021-07-10] MEDS: BUDESONIDE/FORMETEROL FUMARATE 80/4.5 mcg INHALER IH SCH ×2 (11:11→21:54)
[2021-07-10] MEDS: methylPREDNISolone NA SUCC 40 MG/1 ML VIAL IVPUSH SCH (11:11)
[2021-07-10] MEDS ORDERED: amLODIPine BESYLATE 5 MG TABLET (FP) PO SCH (11:30)
[2021-07-10] MEDS ORDERED: EXENATIDE 10 MCG/0.04 ML SQ SCH (11:30)
[2021-07-10] MEDS ORDERED: MAGNESIUM SULF 50% (8.12 MEQ/2 ML-1 GM VIAL) IVPB ONE (12:19)
[2021-07-10] MEDS ORDERED: LOSARTAN POTASSIUM 50 MG TABLET ONE (12:24)
[2021-07-10] MEDS ORDERED: ATORVASTATIN CA 40 MG TABLET (FP) ONE (12:25)
[2021-07-10] MEDS: ATORVASTATIN CA 40 MG TABLET (FP) PO SCH (12:29)
[2021-07-10] MEDS: LOSARTAN POTASSIUM 50 MG TABLET PO SCH (12:29)
[2021-07-10] MEDS ORDERED: MAGNESIUM SULFATE IN WATER 2 GM/50 ML IVPB IVPB ONE (12:30)
[2021-07-10] MEDS ORDERED: Insulin (LOG) Aspart 100 UNITS/ML VIAL SQ SCH (18:15)
[2021-07-10] MEDS ORDERED: ASPIRIN COATED 81 MG TABLET.EC ONE (19:43)
[2021-07-10] MEDS ORDERED: PANTOPRAZOLE 20 MG TABLET PO ONE (19:44)
[2021-07-10] MEDS ORDERED: CHOLECALCIFEROL (VIT D3) 1,000 UNIT (25 MCG) TABLET ONE (19:44)
[2021-07-10] MEDS: CHOLECALCIFEROL (VIT D3) 1,000 UNIT (25 MCG) TABLET PO SCH (19:46)
[2021-07-10] MEDS: PANTOPRAZOLE 20 MG TABLET PO SCH (19:46)
[2021-07-10] MEDS: ASPIRIN COATED 81 MG TABLET.EC PO SCH (19:46)
[2021-07-10] MEDS ORDERED: MONTELUKAST NA 10 MG TABLET ONE (21:47)
[2021-07-10] MEDS: INSULIN (LEVEMIR) 100 UNITS/ML UNITS SQ SCH (21:53)
[2021-07-10] MEDS: CYANOCOBALAMIN (VITAMIN B-12) 100 MCG TABLET PO SCH (21:53)
[2021-07-10] MEDS ORDERED: INSULIN (LEVEMIR) 100 UNITS/ML UNITS SQ SCH ×2 (22:00)
[2021-07-10] MEDS ORDERED: MONTELUKAST NA 10 MG TABLET PO SCH (22:00)
[2021-07-11] MEDS ORDERED: PT OWN MED DRAWER 7, Y5N ONE (05:13)
[2021-07-11] MEDS: INSULIN SLIDING SCALE (NOVOLOG) 1 VIAL SQ SCH ×2 (06:32→11:37)
[2021-07-11] MEDS: GABAPENTIN 400 MG CAPSULE PO SCH (06:32)
[2021-07-11] MEDS: INSULIN (LEVEMIR) 100 UNITS/ML UNITS SQ SCH (06:32)
[2021-07-11 08:56] LABS: HEMATOCRIT 36.8 % (32.4-45.2); HEMOGLOBIN 11.4 GM/dL (10.7-15.3); MCH 28.3 pg (25.7-33.7); MCHC 31.1 g/dl (32.0-36.0); MEAN CELL VOLUME 90.9 fl (80-96); MEAN PLT VOLUME 9.9 fl (7.5-11.1); PLATELET COUNT 260 10^3/uL (134-434); RBC 4.04 M/mm3 (3.60-5.2); RDW 14.5 % (11.6-15.6); WHITE BLOOD COUNT 12.9 K/mm3 (4.0-10.0)
[2021-07-11 09:08] LABS: ALBUMIN 2.8 g/dl (3.4-5.0); CALCIUM 8.5 mg/dL (8.5-10.1)
[2021-07-11 09:10] LABS: BLOOD UREA NITROGEN 21.8 mg/dL (7-18)
[2021-07-11 09:11] LABS: CREATININE 1.1 mg/dL (0.55-1.3); PHOSPHOROUS 3.1 mg/dL (2.5-4.9)
[2021-07-11 09:13] LABS: BILIRUBIN,TOTAL 0.5 mg/dL (0.2-1); TOT PROT 6.3 g/dl (6.4-8.2)
[2021-07-11] MEDS ORDERED: ASPIRIN COATED 81 MG TABLET.EC ONE (09:42)
[2021-07-11] MEDS ORDERED: FUROSEMIDE 40 MG TABLET (FP) ONE (09:42)
[2021-07-11] MEDS ORDERED: ENOXAPARIN NA (PORCINE) 40 MG/0.4 ML DISP.SYRIN SQ ONE (09:43)
[2021-07-11] MEDS ORDERED: PANTOPRAZOLE 20 MG TABLET PO ONE (09:43)
[2021-07-11] MEDS ORDERED: methylPREDNISolone NA SUCC 40 MG/1 ML VIAL ONE (09:43)
[2021-07-11] MEDS ORDERED: LOSARTAN POTASSIUM 50 MG TABLET ONE (09:43)
[2021-07-11] MEDS ORDERED: ATORVASTATIN CA 40 MG TABLET (FP) ONE (09:43)
[2021-07-11] MEDS ORDERED: CHOLECALCIFEROL (VIT D3) 1,000 UNIT (25 MCG) TABLET ONE (09:45)
[2021-07-11] MEDS ORDERED: FUROSEMIDE 40 MG TABLET (FP) PO SCH (10:00)
[2021-07-11] MEDS: BUDESONIDE/FORMETEROL FUMARATE 80/4.5 mcg INHALER IH SCH (10:03)
[2021-07-11] MEDS: methylPREDNISolone NA SUCC 40 MG/1 ML VIAL IVPUSH SCH (10:03)
[2021-07-11] MEDS: CHOLECALCIFEROL (VIT D3) 1,000 UNIT (25 MCG) TABLET PO SCH (10:03)
[2021-07-11] MEDS: ATORVASTATIN CA 40 MG TABLET (FP) PO SCH (10:03)
[2021-07-11] MEDS: ASPIRIN COATED 81 MG TABLET.EC PO SCH (10:03)
[2021-07-11] MEDS: PANTOPRAZOLE 20 MG TABLET PO SCH (10:03)
[2021-07-11] MEDS: ENOXAPARIN NA (PORCINE) 40 MG/0.4 ML DISP.SYRIN SQ SCH (10:03)
[2021-07-11] MEDS: LOSARTAN POTASSIUM 50 MG TABLET PO SCH (10:03)
[2021-07-11] MEDS: CYANOCOBALAMIN (VITAMIN B-12) 100 MCG TABLET PO SCH (11:37)
[2021-07-11 12:29] VITALS: BP 121/76; PULSE 67; TEMP 97.2
== END 2021-07-11 14:28 | disposition left against medical advice (07) | DRG 291 ==
LOC: JER 12:40 → JERBED 15:09
PROVIDERS: ADMIT Internal Medicine; ATTEND Internal Medicine
DX: I11.0 Hypertensive heart disease with heart failure (principal); J96.01 Acute respiratory failure with hypoxia; I50.33 Acute on chronic diastolic (congestive) heart failure; J98.11 Atelectasis; J45.901 Unspecified asthma with (acute) exacerbation; E11.42 Type 2 diabetes mellitus with diabetic polyneuropathy; E78.5 Hyperlipidemia, unspecified; Z79.84 Long term (current) use of oral hypoglycemic drugs; R19.7 Diarrhea, unspecified; E66.9 Obesity, unspecified; Z68.38 Body mass index [BMI] 38.0-38.9, adult; Z53.29 Procedure and treatment not carried out because of patient's decision for other reasons
CPT/HCPCS: 36415; 36600; 71045-TC-FY; 71250-TC; 80053; 80061; 81003; 82550; 82728; 82803; 82962; 83036; 83615; 83690; 83735; 84100; 84443; 84484; 85025; 85027; 85379; 86140; 87086; 87804; 87807; 93005; 93010; 93970-TC; 99285-25; C9803; J0131; U0003; U0005

== ENCOUNTER 2022-10-07 12:32 | Emergency (ER) | payer OTHER ==
[2022-10-07 12:43] VITALS: BMI 33.2
[2022-10-07 15:38] LABS: HEMATOCRIT 39.1 % (32.4-45.2); HEMOGLOBIN 13.1 GM/dL (10.7-15.3); MCH 29.2 pg (25.7-33.7); MCHC 33.4 g/dl (32.0-36.0); MEAN CELL VOLUME 87.4 fl (80-96); MEAN PLT VOLUME 9.7 fl (7.5-11.1); PLATELET COUNT 291 10^3/uL (134-434); RBC 4.48 M/mm3 (3.60-5.2); RDW 14.9 % (11.6-15.6); WHITE BLOOD COUNT 8.6 K/mm3 (4.0-10.0)
[2022-10-07 15:47] VITALS: BP 120/65; PULSE 73; RESP 18; TEMP 98.4
[2022-10-07 15:55] LABS: CALCIUM 9.4 mg/dL (8.5-10.1)
[2022-10-07 15:59] LABS: CREATININE 0.8 mg/dL (0.55-1.3)
== END 2022-10-07 16:53 | disposition home or self-care (01) ==
LOC: JER 12:32
DX: R22.42 Localized swelling, mass and lump, left lower limb (principal); M79.672 Pain in left foot
CPT/HCPCS: 36415; 73610-TC-LT-FY; 73630-TC-LT; 80048; 85027; 93971-TC; 99285-25

== ENCOUNTER 2023-06-02 10:21 | Inpatient (IN) | payer OTHER ==
[2023-06-02 10:37] VITALS: BMI 33.6
[2023-06-02] MEDS ORDERED: ACETAMINOPHEN 500 MG TABLET (FP) PO ONE (11:13)
[2023-06-02] MEDS ORDERED: ACETAMINOPHEN 500 MG TABLET (FP) ONE (11:24)
[2023-06-02] MEDS ORDERED: oxyCODONE HCL 5 MG TABLET PO ONE (13:06)
[2023-06-02] MEDS ORDERED: oxyCODONE HCL 5 MG TABLET ONE (13:31)
[2023-06-02 14:07] LABS: BASO % 1.1 % (0-2.0); EOS % 2.4 % (0-4.5); HEMATOCRIT 40.3 % (32.4-45.2); HEMOGLOBIN 12.6 GM/dL (10.7-15.3); LYMPH % 32.4 % (8-40); MCH 27.9 pg (25.7-33.7); MCHC 31.1 g/dl (32.0-36.0); MEAN CELL VOLUME 89.6 fl (80-96); MEAN PLT VOLUME 9.1 fl (7.5-11.1); MONO % 11.5 % (3.8-10.2); NEUT % 52.6 % (42.8-82.8); PLATELET COUNT 270 10^3/uL (134-434); RDW 15.5 % (11.6-15.6); WHITE BLOOD COUNT 10.1 K/mm3 (4.0-10.0)
[2023-06-02 14:31] LABS: POTASSIUM 3.6 mmol/L (3.5-5.1)
[2023-06-02 14:33] LABS: ALBUMIN 3.1 g/dl (3.4-5.0)
[2023-06-02 14:34] LABS: BLOOD UREA NITROGEN 9.3 mg/dL (7-18)
[2023-06-02 14:36] LABS: CREATININE 0.7 mg/dL (0.55-1.3)
[2023-06-02 14:38] LABS: BILIRUBIN,TOTAL 0.7 mg/dL (0.2-1); TOT PROT 6.5 g/dl (6.4-8.2)
[2023-06-02] MEDS ORDERED: ACETAMINOPHEN 1000 MG/100 ML BAG IVPB PRN (16:10)
[2023-06-02] MEDS ORDERED: GABAPENTIN 100 MG CAPSULE PO SCH (16:15)
[2023-06-02] MEDS: INSULIN SLIDING SCALE (NOVOLOG) 1 VIAL SQ SCH ×2 (17:04→21:25)
[2023-06-02] MEDS: ACETAMINOPHEN 500 MG TABLET (FP) PO SCH ×2 (18:20→22:00)
[2023-06-02] MEDS: GABAPENTIN 400 MG CAPSULE PO SCH (21:23)
[2023-06-03] MEDS: ACETAMINOPHEN 500 MG TABLET (FP) PO SCH ×4 (06:28→21:20)
[2023-06-03] MEDS: INSULIN SLIDING SCALE (NOVOLOG) 1 VIAL SQ SCH ×4 (06:29→21:17)
[2023-06-03 07:56] LABS: POTASSIUM 3.7 mmol/L (3.5-5.1)
[2023-06-03 07:58] LABS: BLOOD UREA NITROGEN 10.5 mg/dL (7-18); CALCIUM 8.5 mg/dL (8.5-10.1)
[2023-06-03 07:59] LABS: HEMATOCRIT 35.5 % (32.4-45.2); HEMOGLOBIN 11.8 GM/dL (10.7-15.3); MCH 29.1 pg (25.7-33.7); MCHC 33.3 g/dl (32.0-36.0); MEAN CELL VOLUME 87.2 fl (80-96); MEAN PLT VOLUME 9.3 fl (7.5-11.1); PLATELET COUNT 249 10^3/uL (134-434); RBC 4.07 M/mm3 (3.60-5.2); RDW 15.2 % (11.6-15.6); WHITE BLOOD COUNT 9.1 K/mm3 (4.0-10.0)
[2023-06-03 08:02] LABS: CREATININE 0.8 mg/dL (0.55-1.3)
[2023-06-03] MEDS: GABAPENTIN 300 MG CAPSULE PO SCH (10:23)
[2023-06-03] MEDS: FUROSEMIDE 40 MG TABLET (FP) PO SCH (10:23)
[2023-06-03] MEDS ORDERED: INSULIN (NOVOLOG) ASPART 100 UNITS/ML 10ML VIAL ONE ×3 (11:38→21:07)
[2023-06-03] MEDS: FUROSEMIDE 40 MG/4 ML INJECTABLE VIAL IVPUSH SCH (15:14)
[2023-06-03] MEDS: GABAPENTIN 400 MG CAPSULE PO SCH (21:18)
[2023-06-03] MEDS: ATORVASTATIN CA 40 MG TABLET (FP) PO SCH (21:18)
[2023-06-03] MEDS: MONTELUKAST NA 10 MG TABLET PO SCH (21:18)
[2023-06-04] MEDS: ACETAMINOPHEN 500 MG TABLET (FP) PO SCH ×4 (05:28→22:02)
[2023-06-04] MEDS: INSULIN SLIDING SCALE (NOVOLOG) 1 VIAL SQ SCH ×4 (07:35→22:20)
[2023-06-04] MEDS: ASPIRIN COATED 81 MG TABLET.EC PO SCH (09:14)
[2023-06-04] MEDS: GABAPENTIN 300 MG CAPSULE PO SCH (09:17)
[2023-06-04] MEDS: oxyCODONE HCL 5 MG TABLET PO PRN ×2 (09:17→16:56)
[2023-06-04] MEDS: FUROSEMIDE 40 MG/4 ML INJECTABLE VIAL IVPUSH SCH (09:17)
[2023-06-04] MEDS: FUROSEMIDE 40 MG TABLET (FP) PO SCH (11:02)
[2023-06-04] MEDS ORDERED: INSULIN (NOVOLOG) ASPART 100 UNITS/ML 10ML VIAL ONE ×3 (16:39→22:11)
[2023-06-04] MEDS ORDERED: LIDOCAINE 5% TOPICAL PATCH TP ONE (16:40)
[2023-06-04] MEDS ORDERED: LIDOCAINE PATCH REMOVAL MC SCH (22:00)
[2023-06-04] MEDS: MONTELUKAST NA 10 MG TABLET PO SCH (22:01)
[2023-06-04] MEDS: ATORVASTATIN CA 40 MG TABLET (FP) PO SCH (22:01)
[2023-06-04] MEDS: GABAPENTIN 400 MG CAPSULE PO SCH (22:01)
[2023-06-04] MEDS: BUDESONIDE/FORMOTEROL FUMARATE 80-4.5 MCG (10.3 GM INHALER) IH SCH (22:19)
[2023-06-05] MEDS: ACETAMINOPHEN 500 MG TABLET (FP) PO SCH ×3 (04:16→17:37)
[2023-06-05] MEDS: INSULIN SLIDING SCALE (NOVOLOG) 1 VIAL SQ SCH ×4 (06:16→21:49)
[2023-06-05] MEDS: FUROSEMIDE 40 MG TABLET (FP) PO SCH (09:04)
[2023-06-05] MEDS: ASPIRIN COATED 81 MG TABLET.EC PO SCH (09:05)
[2023-06-05] MEDS: oxyCODONE HCL 5 MG TABLET PO PRN (09:05)
[2023-06-05] MEDS: GABAPENTIN 300 MG CAPSULE PO SCH (09:05)
[2023-06-05] MEDS: FUROSEMIDE 40 MG/4 ML INJECTABLE VIAL IVPUSH SCH (09:07)
[2023-06-05] MEDS: ENOXAPARIN NA (PORCINE) 40 MG/0.4 ML DISP.SYRIN SQ SCH (09:10)
[2023-06-05] MEDS: BUDESONIDE/FORMOTEROL FUMARATE 80-4.5 MCG (10.3 GM INHALER) IH SCH ×2 (11:15→21:49)
[2023-06-05] MEDS: LIDOCAINE 4% PATCH TP SCH ×2 (11:15)
[2023-06-05] MEDS ORDERED: NAPROXEN 500 MG TABLET PO SCH (11:45)
[2023-06-05] MEDS ORDERED: oxyCODONE HCL 5 MG TABLET PO PRN (11:46)
[2023-06-05] MEDS ORDERED: DOCUSATE SODIUM 100 MG CAPSULE (FP) PO PRN (13:53)
[2023-06-05] MEDS: FAMOTIDINE 20 MG TABLET PO SCH (14:37)
[2023-06-05] MEDS ORDERED: LIDOCAINE 4% PATCH TP ONE (16:40)
[2023-06-05] MEDS ORDERED: INSULIN (NOVOLOG) ASPART 100 UNITS/ML 10ML VIAL ONE ×2 (17:02→21:04)
[2023-06-05] MEDS: MONTELUKAST NA 10 MG TABLET PO SCH (21:40)
[2023-06-05] MEDS: ATORVASTATIN CA 40 MG TABLET (FP) PO SCH (21:40)
[2023-06-05] MEDS: LIDOCAINE PATCH REMOVAL MC SCH ×2 (21:40)
[2023-06-05] MEDS: GABAPENTIN 400 MG CAPSULE PO SCH (21:41)
[2023-06-05] MEDS: SENNOSIDES 8.8 MG/5 ML SYRUP PO SCH ×2 (21:42→22:04)
[2023-06-05] MEDS: KETOROLAC TROMETHAMINE 15 MG/ML VIAL IVPUSH PRN (21:47)
[2023-06-06] MEDS: INSULIN SLIDING SCALE (NOVOLOG) 1 VIAL SQ SCH ×4 (06:14→22:09)
[2023-06-06 08:50] LABS: POTASSIUM 3.8 mmol/L (3.5-5.1)
[2023-06-06 08:54] LABS: BLOOD UREA NITROGEN 25.1 mg/dL (7-18)
[2023-06-06 08:57] LABS: CREATININE 1.1 mg/dL (0.55-1.3)
[2023-06-06] MEDS: GABAPENTIN 300 MG CAPSULE PO SCH (10:47)
[2023-06-06] MEDS: FAMOTIDINE 20 MG TABLET PO SCH (10:47)
[2023-06-06] MEDS: MULTIVITAMINS (DAILY MVI) TABLET (FP) PO SCH (10:47)
[2023-06-06] MEDS: ASPIRIN COATED 81 MG TABLET.EC PO SCH (10:47)
[2023-06-06] MEDS: ASCORBIC ACID 250 MG TABLET (FP) PO SCH (10:47)
[2023-06-06] MEDS: ENOXAPARIN NA (PORCINE) 40 MG/0.4 ML DISP.SYRIN SQ SCH (10:48)
[2023-06-06] MEDS: FUROSEMIDE 40 MG/4 ML INJECTABLE VIAL IVPUSH SCH (10:48)
[2023-06-06] MEDS: KETOROLAC TROMETHAMINE 15 MG/ML VIAL IVPUSH PRN ×2 (10:49→21:30)
[2023-06-06] MEDS: LIDOCAINE 4% PATCH TP SCH ×2 (10:49)
[2023-06-06] MEDS: FUROSEMIDE 40 MG TABLET (FP) PO SCH (10:51)
[2023-06-06] MEDS: BUDESONIDE/FORMOTEROL FUMARATE 80-4.5 MCG (10.3 GM INHALER) IH SCH ×2 (10:51→21:32)
[2023-06-06] MEDS ORDERED: INSULIN (NOVOLOG) ASPART 100 UNITS/ML 10ML VIAL ONE ×3 (11:40→22:09)
[2023-06-06] MEDS: GABAPENTIN 400 MG CAPSULE PO SCH (21:25)
[2023-06-06] MEDS: MONTELUKAST NA 10 MG TABLET PO SCH (21:26)
[2023-06-06] MEDS: SENNOSIDES 8.8 MG/5 ML SYRUP PO SCH (21:26)
[2023-06-06] MEDS: ATORVASTATIN CA 40 MG TABLET (FP) PO SCH (21:26)
[2023-06-06] MEDS: LIDOCAINE PATCH REMOVAL MC SCH ×2 (21:32)
[2023-06-07] MEDS: INSULIN SLIDING SCALE (NOVOLOG) 1 VIAL SQ SCH ×4 (06:40→21:51)
[2023-06-07] MEDS: FAMOTIDINE 20 MG TABLET PO SCH (10:32)
[2023-06-07] MEDS: ASCORBIC ACID 250 MG TABLET (FP) PO SCH (10:32)
[2023-06-07] MEDS: ASPIRIN COATED 81 MG TABLET.EC PO SCH (10:32)
[2023-06-07] MEDS: GABAPENTIN 300 MG CAPSULE PO SCH (10:32)
[2023-06-07] MEDS: MULTIVITAMINS (DAILY MVI) TABLET (FP) PO SCH (10:32)
[2023-06-07] MEDS: LIDOCAINE 4% PATCH TP SCH ×2 (10:33)
[2023-06-07] MEDS: ENOXAPARIN NA (PORCINE) 40 MG/0.4 ML DISP.SYRIN SQ SCH (10:33)
[2023-06-07] MEDS: FUROSEMIDE 40 MG TABLET (FP) PO SCH (10:36)
[2023-06-07] MEDS: FUROSEMIDE 40 MG/4 ML INJECTABLE VIAL IVPUSH SCH (10:36)
[2023-06-07] MEDS: BUDESONIDE/FORMOTEROL FUMARATE 80-4.5 MCG (10.3 GM INHALER) IH SCH ×2 (10:36→21:39)
[2023-06-07] MEDS ORDERED: INSULIN (NOVOLOG) ASPART 100 UNITS/ML 10ML VIAL ONE ×3 (16:23→21:51)
[2023-06-07] MEDS: MONTELUKAST NA 10 MG TABLET PO SCH (21:36)
[2023-06-07] MEDS: SENNOSIDES 8.8 MG/5 ML SYRUP PO SCH (21:36)
[2023-06-07] MEDS: GABAPENTIN 400 MG CAPSULE PO SCH (21:36)
[2023-06-07] MEDS: ATORVASTATIN CA 40 MG TABLET (FP) PO SCH (21:36)
[2023-06-07] MEDS: KETOROLAC TROMETHAMINE 15 MG/ML VIAL IVPUSH PRN (21:37)
[2023-06-07] MEDS: LIDOCAINE PATCH REMOVAL MC SCH ×2 (21:38)
[2023-06-08] MEDS ORDERED: INSULIN (NOVOLOG) ASPART 100 UNITS/ML 10ML VIAL ONE ×3 (06:49→21:35)
[2023-06-08] MEDS: INSULIN SLIDING SCALE (NOVOLOG) 1 VIAL SQ SCH ×4 (06:51→21:37)
[2023-06-08 08:49] LABS: BASO % 0.9 % (0-2.0); EOS % 3.7 % (0-4.5); HEMATOCRIT 40.6 % (32.4-45.2); HEMOGLOBIN 12.6 GM/dL (10.7-15.3); LYMPH % 43.3 % (8-40); MCHC 31.1 g/dl (32.0-36.0); MONO % 9.8 % (3.8-10.2); NEUT % 42.3 % (42.8-82.8); PLATELET COUNT 328 10^3/uL (134-434); RBC 4.51 M/mm3 (3.60-5.2); RDW 15.1 % (11.6-15.6); WHITE BLOOD COUNT 8.5 K/mm3 (4.0-10.0)
[2023-06-08 09:06] LABS: POTASSIUM 4.3 mmol/L (3.5-5.1)
[2023-06-08 09:31] LABS: CALCIUM 9.4 mg/dL (8.5-10.1)
[2023-06-08 09:32] LABS: ALBUMIN 2.9 g/dl (3.4-5.0); BLOOD UREA NITROGEN 36.1 mg/dL (7-18)
[2023-06-08 09:35] LABS: CREATININE 1.1 mg/dL (0.55-1.3)
[2023-06-08 09:37] LABS: BILIRUBIN,TOTAL 0.8 mg/dL (0.2-1); TOT PROT 6.6 g/dl (6.4-8.2)
[2023-06-08] MEDS: ENOXAPARIN NA (PORCINE) 40 MG/0.4 ML DISP.SYRIN SQ SCH (10:48)
[2023-06-08] MEDS: LIDOCAINE 4% PATCH TP SCH ×2 (10:49→10:50)
[2023-06-08] MEDS: FAMOTIDINE 20 MG TABLET PO SCH (10:51)
[2023-06-08] MEDS: ASCORBIC ACID 250 MG TABLET (FP) PO SCH (10:51)
[2023-06-08] MEDS: BUDESONIDE/FORMOTEROL FUMARATE 80-4.5 MCG (10.3 GM INHALER) IH SCH ×2 (10:51→21:29)
[2023-06-08] MEDS: ASPIRIN COATED 81 MG TABLET.EC PO SCH (10:51)
[2023-06-08] MEDS: MULTIVITAMINS (DAILY MVI) TABLET (FP) PO SCH (10:51)
[2023-06-08] MEDS: FUROSEMIDE 40 MG/4 ML INJECTABLE VIAL IVPUSH SCH (10:51)
[2023-06-08] MEDS: GABAPENTIN 300 MG CAPSULE PO SCH (10:51)
[2023-06-08] MEDS: FUROSEMIDE 40 MG TABLET (FP) PO SCH (10:51)
[2023-06-08] MEDS: ACETAMINOPHEN 325 MG TABLET (FP) PO PRN (17:41)
[2023-06-08] MEDS: SENNOSIDES 8.8 MG/5 ML SYRUP PO SCH ×2 (21:27→21:40)
[2023-06-08] MEDS: ATORVASTATIN CA 40 MG TABLET (FP) PO SCH (21:27)
[2023-06-08] MEDS: GABAPENTIN 400 MG CAPSULE PO SCH (21:27)
[2023-06-08] MEDS: MONTELUKAST NA 10 MG TABLET PO SCH (21:27)
[2023-06-08] MEDS: LIDOCAINE PATCH REMOVAL MC SCH ×2 (21:28)
[2023-06-09] MEDS ORDERED: INSULIN (NOVOLOG) ASPART 100 UNITS/ML 10ML VIAL ONE ×4 (06:53→21:36)
[2023-06-09] MEDS: INSULIN SLIDING SCALE (NOVOLOG) 1 VIAL SQ SCH ×4 (07:15→22:33)
[2023-06-09] MEDS: MULTIVITAMINS (DAILY MVI) TABLET (FP) PO SCH (09:45)
[2023-06-09] MEDS: ASCORBIC ACID 250 MG TABLET (FP) PO SCH (09:45)
[2023-06-09] MEDS: FAMOTIDINE 20 MG TABLET PO SCH (09:45)
[2023-06-09] MEDS: GABAPENTIN 300 MG CAPSULE PO SCH (09:45)
[2023-06-09] MEDS: ENOXAPARIN NA (PORCINE) 40 MG/0.4 ML DISP.SYRIN SQ SCH (09:45)
[2023-06-09] MEDS: ASPIRIN COATED 81 MG TABLET.EC PO SCH (09:45)
[2023-06-09] MEDS: FUROSEMIDE 40 MG TABLET (FP) PO SCH (09:45)
[2023-06-09] MEDS: FUROSEMIDE 40 MG/4 ML INJECTABLE VIAL IVPUSH SCH (09:46)
[2023-06-09] MEDS: LIDOCAINE 4% PATCH TP SCH ×2 (09:46)
[2023-06-09] MEDS: BUDESONIDE/FORMOTEROL FUMARATE 80-4.5 MCG (10.3 GM INHALER) IH SCH ×2 (09:47→21:38)
[2023-06-09] MEDS: KETOROLAC TROMETHAMINE 15 MG/ML VIAL IVPUSH PRN (09:47)
[2023-06-09] MEDS: ACETAMINOPHEN 325 MG TABLET (FP) PO PRN (17:45)
[2023-06-09] MEDS: ATORVASTATIN CA 40 MG TABLET (FP) PO SCH (21:37)
[2023-06-09] MEDS: MONTELUKAST NA 10 MG TABLET PO SCH (21:37)
[2023-06-09] MEDS: GABAPENTIN 400 MG CAPSULE PO SCH (21:38)
[2023-06-09] MEDS: LIDOCAINE PATCH REMOVAL MC SCH ×2 (21:38)
[2023-06-09] MEDS: SENNOSIDES 8.8 MG/5 ML SYRUP PO SCH (21:47)
[2023-06-09] MEDS ORDERED: KETOROLAC TROMETHAMINE 15 MG/ML VIAL IVPUSH PRN (22:26)
[2023-06-10] MEDS ORDERED: INSULIN (NOVOLOG) ASPART 100 UNITS/ML 10ML VIAL ONE ×3 (06:57→11:15)
[2023-06-10] MEDS: INSULIN SLIDING SCALE (NOVOLOG) 1 VIAL SQ SCH ×4 (06:59→22:14)
[2023-06-10] MEDS: LIDOCAINE 4% PATCH TP SCH ×2 (10:23→10:24)
[2023-06-10] MEDS: FAMOTIDINE 20 MG TABLET PO SCH (10:24)
[2023-06-10] MEDS: ASPIRIN COATED 81 MG TABLET.EC PO SCH (10:24)
[2023-06-10] MEDS: MULTIVITAMINS (DAILY MVI) TABLET (FP) PO SCH (10:24)
[2023-06-10] MEDS: FUROSEMIDE 40 MG TABLET (FP) PO SCH (10:24)
[2023-06-10] MEDS: GABAPENTIN 300 MG CAPSULE PO SCH (10:24)
[2023-06-10] MEDS: ASCORBIC ACID 250 MG TABLET (FP) PO SCH (10:24)
[2023-06-10] MEDS: BUDESONIDE/FORMOTEROL FUMARATE 80-4.5 MCG (10.3 GM INHALER) IH SCH ×2 (10:25→22:17)
[2023-06-10] MEDS: ENOXAPARIN NA (PORCINE) 40 MG/0.4 ML DISP.SYRIN SQ SCH (10:25)
[2023-06-10] MEDS: FUROSEMIDE 40 MG/4 ML INJECTABLE VIAL IVPUSH SCH (10:25)
[2023-06-10] MEDS: MECLIZINE HCL 25 MG TABLET (FP) PO PRN (12:54)
[2023-06-10] MEDS: SENNOSIDES 8.8 MG/5 ML SYRUP PO SCH (22:15)
[2023-06-10] MEDS: MONTELUKAST NA 10 MG TABLET PO SCH (22:16)
[2023-06-10] MEDS: ATORVASTATIN CA 40 MG TABLET (FP) PO SCH (22:16)
[2023-06-10] MEDS: GABAPENTIN 400 MG CAPSULE PO SCH (22:16)
[2023-06-10] MEDS: LIDOCAINE PATCH REMOVAL MC SCH ×2 (22:16→22:17)
[2023-06-11] MEDS: INSULIN SLIDING SCALE (NOVOLOG) 1 VIAL SQ SCH ×4 (06:47→22:45)
[2023-06-11] MEDS ORDERED: INSULIN (NOVOLOG) ASPART 100 UNITS/ML 10ML VIAL ONE ×2 (09:59→17:02)
[2023-06-11] MEDS: BUDESONIDE/FORMOTEROL FUMARATE 80-4.5 MCG (10.3 GM INHALER) IH SCH ×2 (10:19→22:44)
[2023-06-11] MEDS: ENOXAPARIN NA (PORCINE) 40 MG/0.4 ML DISP.SYRIN SQ SCH (10:19)
[2023-06-11] MEDS: LIDOCAINE 4% PATCH TP SCH ×2 (10:19)
[2023-06-11] MEDS: ASPIRIN COATED 81 MG TABLET.EC PO SCH (10:20)
[2023-06-11] MEDS: GABAPENTIN 300 MG CAPSULE PO SCH (10:20)
[2023-06-11] MEDS: FUROSEMIDE 40 MG/4 ML INJECTABLE VIAL IVPUSH SCH (10:20)
[2023-06-11] MEDS: ASCORBIC ACID 250 MG TABLET (FP) PO SCH (10:20)
[2023-06-11] MEDS: FAMOTIDINE 20 MG TABLET PO SCH (10:20)
[2023-06-11] MEDS: FUROSEMIDE 40 MG TABLET (FP) PO SCH (10:20)
[2023-06-11] MEDS: MULTIVITAMINS (DAILY MVI) TABLET (FP) PO SCH (10:20)
[2023-06-11] MEDS: MECLIZINE HCL 25 MG TABLET (FP) PO PRN (13:09)
[2023-06-11] MEDS ORDERED: INSULIN (LEVEMIR) 100 UNITS/ML UNITS SQ ONE (17:02)
[2023-06-11] MEDS: SENNOSIDES 8.8 MG/5 ML SYRUP PO SCH ×2 (22:39→22:44)
[2023-06-11] MEDS: ATORVASTATIN CA 40 MG TABLET (FP) PO SCH (22:44)
[2023-06-11] MEDS: MONTELUKAST NA 10 MG TABLET PO SCH (22:44)
[2023-06-11] MEDS: GABAPENTIN 400 MG CAPSULE PO SCH (22:44)
[2023-06-11] MEDS: LIDOCAINE PATCH REMOVAL MC SCH ×2 (22:45)
[2023-06-12] MEDS: INSULIN SLIDING SCALE (NOVOLOG) 1 VIAL SQ SCH ×4 (07:14→22:09)
[2023-06-12] MEDS: FUROSEMIDE 40 MG/4 ML INJECTABLE VIAL IVPUSH SCH (10:42)
[2023-06-12] MEDS: MULTIVITAMINS (DAILY MVI) TABLET (FP) PO SCH (10:44)
[2023-06-12] MEDS: ASCORBIC ACID 250 MG TABLET (FP) PO SCH (10:44)
[2023-06-12] MEDS: LIDOCAINE 4% PATCH TP SCH ×2 (10:44→10:51)
[2023-06-12] MEDS: FAMOTIDINE 20 MG TABLET PO SCH (10:44)
[2023-06-12] MEDS: FUROSEMIDE 40 MG TABLET (FP) PO SCH (10:44)
[2023-06-12] MEDS: GABAPENTIN 300 MG CAPSULE PO SCH (10:44)
[2023-06-12] MEDS: ASPIRIN COATED 81 MG TABLET.EC PO SCH (10:44)
[2023-06-12] MEDS ORDERED: INSULIN (NOVOLOG) ASPART 100 UNITS/ML 10ML VIAL ONE (11:52)
[2023-06-12] MEDS: BUDESONIDE/FORMOTEROL FUMARATE 80-4.5 MCG (10.3 GM INHALER) IH SCH ×2 (12:05→22:06)
[2023-06-12] MEDS: ENOXAPARIN NA (PORCINE) 40 MG/0.4 ML DISP.SYRIN SQ SCH (15:00)
[2023-06-12] MEDS: GABAPENTIN 400 MG CAPSULE PO SCH (22:03)
[2023-06-12] MEDS: SENNOSIDES 8.8 MG/5 ML SYRUP PO SCH (22:03)
[2023-06-12] MEDS: ATORVASTATIN CA 40 MG TABLET (FP) PO SCH (22:03)
[2023-06-12] MEDS: MONTELUKAST NA 10 MG TABLET PO SCH (22:03)
[2023-06-12] MEDS: LIDOCAINE PATCH REMOVAL MC SCH ×2 (22:06)
[2023-06-13] MEDS: INSULIN SLIDING SCALE (NOVOLOG) 1 VIAL SQ SCH ×4 (06:51→21:47)
[2023-06-13] MEDS: ENOXAPARIN NA (PORCINE) 40 MG/0.4 ML DISP.SYRIN SQ SCH (11:55)
[2023-06-13] MEDS: LIDOCAINE 4% PATCH TP SCH ×2 (11:55→12:00)
[2023-06-13] MEDS: FAMOTIDINE 20 MG TABLET PO SCH (11:59)
[2023-06-13] MEDS: ASCORBIC ACID 250 MG TABLET (FP) PO SCH (11:59)
[2023-06-13] MEDS: FUROSEMIDE 40 MG TABLET (FP) PO SCH (11:59)
[2023-06-13] MEDS: ASPIRIN COATED 81 MG TABLET.EC PO SCH (11:59)
[2023-06-13] MEDS: MULTIVITAMINS (DAILY MVI) TABLET (FP) PO SCH (11:59)
[2023-06-13] MEDS: GABAPENTIN 300 MG CAPSULE PO SCH (11:59)
[2023-06-13] MEDS: BUDESONIDE/FORMOTEROL FUMARATE 80-4.5 MCG (10.3 GM INHALER) IH SCH ×2 (12:55→21:54)
[2023-06-13] MEDS: FUROSEMIDE 40 MG/4 ML INJECTABLE VIAL IVPUSH SCH (12:55)
[2023-06-13] MEDS: ACETAMINOPHEN 325 MG TABLET (FP) PO PRN ×2 (13:00→21:45)
[2023-06-13 13:10] LABS: POTASSIUM 4.6 mmol/L (3.5-5.1)
[2023-06-13 13:12] LABS: BLOOD UREA NITROGEN 36.9 mg/dL (7-18); CALCIUM 9.4 mg/dL (8.5-10.1)
[2023-06-13 13:16] LABS: CREATININE 1.2 mg/dL (0.55-1.3)
[2023-06-13] MEDS: MECLIZINE HCL 25 MG TABLET (FP) PO PRN (13:36)
[2023-06-13] MEDS: metFORMIN HCL 500 MG TABLET (FP) PO SCH (18:37)
[2023-06-13] MEDS: GABAPENTIN 400 MG CAPSULE PO SCH (21:46)
[2023-06-13] MEDS: MONTELUKAST NA 10 MG TABLET PO SCH (21:46)
[2023-06-13] MEDS: ATORVASTATIN CA 40 MG TABLET (FP) PO SCH (21:46)
[2023-06-13] MEDS: SENNOSIDES 8.8 MG/5 ML SYRUP PO SCH (21:47)
[2023-06-13] MEDS: LIDOCAINE PATCH REMOVAL MC SCH ×2 (21:54)
[2023-06-13 22:23] VITALS: RESP 18
[2023-06-14] MEDS: metFORMIN HCL 500 MG TABLET (FP) PO SCH ×2 (07:33→17:21)
[2023-06-14] MEDS: INSULIN SLIDING SCALE (NOVOLOG) 1 VIAL SQ SCH ×3 (07:34→17:21)
[2023-06-14] MEDS: GABAPENTIN 300 MG CAPSULE PO SCH (09:57)
[2023-06-14] MEDS: ASPIRIN COATED 81 MG TABLET.EC PO SCH (09:57)
[2023-06-14] MEDS: ENOXAPARIN NA (PORCINE) 40 MG/0.4 ML DISP.SYRIN SQ SCH (09:57)
[2023-06-14] MEDS: FAMOTIDINE 20 MG TABLET PO SCH (09:58)
[2023-06-14] MEDS: MULTIVITAMINS (DAILY MVI) TABLET (FP) PO SCH (09:58)
[2023-06-14] MEDS: ASCORBIC ACID 250 MG TABLET (FP) PO SCH (09:58)
[2023-06-14] MEDS: LIDOCAINE 4% PATCH TP SCH ×2 (09:58→09:59)
[2023-06-14] MEDS: BUDESONIDE/FORMOTEROL FUMARATE 80-4.5 MCG (10.3 GM INHALER) IH SCH (09:59)
[2023-06-14] MEDS ORDERED: INSULIN (NOVOLOG) ASPART 100 UNITS/ML 10ML VIAL ONE (10:38)
[2023-06-14] MEDS: FUROSEMIDE 40 MG TABLET (FP) PO SCH (12:49)
[2023-06-14] MEDS: FUROSEMIDE 40 MG/4 ML INJECTABLE VIAL IVPUSH SCH (12:50)
[2023-06-14 14:41] VITALS: BP 146/60; PULSE 74; TEMP 97.9
== END 2023-06-14 18:31 | DRG 554 ==
LOC: JER 10:21 → JERBED 14:58 → J7W 16:43 → OBSVTOIN 06-05 10:58
PROVIDERS: ADMIT Internal Medicine
DX: M17.0 Bilateral primary osteoarthritis of knee (principal); I50.30 Unspecified diastolic (congestive) heart failure; R26.2 Difficulty in walking, not elsewhere classified; I10 Essential (primary) hypertension; E11.9 Type 2 diabetes mellitus without complications; E66.9 Obesity, unspecified; Z68.33 Body mass index [BMI] 33.0-33.9, adult
CPT/HCPCS: 0241U-QW; 36415; 70450-TC; 72125-TC; 72192-TC; 73521-TC-FY; 73562-TC-LT-FY; 73562-TC-RT-FY; 73721-RT-TC; 73723-LT; 80048; 80053; 82962; 83036; 85025; 85027; 93005; 93010; 97116-GP; 97162-GP; 99285-25; G0378